=== PATIENT | male | born 1955 | race Caucasian/White ===

== ENCOUNTER → 2019-10-24 11:39 | Outpatient (ROUT) | payer MEDICARE, MEDICAID, SELFPAY ==
[2019-10-25 02:18] LABS: COVID19 Sendout Not Detected (Not Detect)
== END ==
PROVIDERS: Visit Provider Internal Medicine
DX: Z11.59 Encounter for screening for other viral diseases (principal)
CPT/HCPCS: 87635

== ENCOUNTER → 2019-11-26 08:10 | Outpatient (ROUT) | payer MEDICARE, MEDICAID, SELFPAY ==
[2019-11-26 09:33] LABS: Add Manual Diff / Slide Review NO; Basophils Absolute Auto 0 /uL (0-100); Basophils Percent Auto 0.6 % (0-2); Eosinophils Absolute Auto 200 /uL (0-450); Hematocrit 43.3 % (41-53); Lymphocytes Absolute Auto 1900 /uL (1100-4500); Lymphocytes Percent Auto 27.4 % (25-40); Mean Corpuscular HGB Conc 34.7 % (30-36); Mean Corpuscular Hemoglobin 33.3 PG (26-34); Monocytes Absolute Auto 500 /uL (0-900); Monocytes Percent Auto 7.6 % (3-14); Neutrophils Absolute Auto 4300 /uL (1500-7000); Neutrophils Percent Auto 61.4 % (50-75); Platelet Count 272 X10^3/uL (150-400); Red Blood Cell Count 4.52 X10^6/uL (4.5-5.9); Red Cell Distribution Width 12.6 % (11.6-14.8)
[2019-11-26 09:47] LABS: Alanine Aminotransferase 20 IU/L (<50); Albumin 3.7 g/dL (3.5-5.0); Albumin Globulin Ratio 1.2 (1.0-2.8); Alkaline Phosphatase 73 U/L (38-126); Aspartate Aminotransferase 21 IU/L (17-59); BUN Creatinine Ratio 25.3 (6-22); Bilirubin Total 0.8 mg/dL (0.2-1.3); Blood Urea Nitrogen 25 mg/dL (9-20); Calcium 9.1 mg/dL (8.4-10.2); Carbon Dioxide 31 mmol/L (22-32); Chloride 105 mmol/L (98-107); Estimated Glomerular Filt Rate > 60.0 mL/min (>60); Globulin 3.2 g/dL (1.7-4.1); Glucose 83 mg/dL (80-110); HEMOLYSIS < 15 (0-50); Potassium 3.9 mmol/L (3.4-5.1); Sodium 140 mmol/L (137-145); Total Protein 6.9 g/dL (6.3-8.2)
[2019-11-26 10:17] LABS: Prostate Specific Antigen 1.21 ng/mL (0.10-4.00)
[2019-11-26 10:47] LABS: Thyroid Stimulating Hormone 2.39 uIU/mL (0.47-4.68)
== END ==
PROVIDERS: Visit Provider Nurse Practitioner Family
DX: R35.0 Frequency of micturition (principal); R53.83 Other fatigue
CPT/HCPCS: 36415; 80053; 84153; 84443; 85025

== ENCOUNTER → 2019-12-16 19:59 | Outpatient (ROUT) | payer MEDICARE, MEDICAID, SELFPAY ==
[2019-12-16 20:31] LABS: Appearance Urine UA CLEAR; Bilirubin Urine UA NEGATIVE (NEGATIVE); Color Urine UA YELLOW; Glucose Urine UA NEGATIVE (Negative); Ketones Urine UA TRACE (NEGATIVE); Leukocyte Esterase Urine UA NEGATIVE (NEGATIVE); Nitrite Urine UA NEGATIVE (Negative); Occult Blood Urine UA NEGATIVE (Negative); Protein Urine UA NEGATIVE (Negative); Specific Gravity Urine UA 1.025 (1.000-1.035); Urobilinogen Urine UA 0.2 E.U./dL (0.2); pH Urine UA 5.5 (4.5-8.0)
[2019-12-16 20:40] LABS: Amorphous Sediment Urine 1+; RBC Urine 1-5/HPF (0-5/HPF); Squamous Epithelial Cell Urine 0-1 /HPF (0-5/HPF); WBC Urine 1-5/HPF (0-5/HPF)
[2019-12-16 20:41] LABS: Bacteria Urine Occasional (0-1); Culture Indicated Urine Cult Not Indicated; Mucus Urine 2+ (Negative)
== END ==
PROVIDERS: Visit Provider Nurse Practitioner Gerontology
DX: N39.0 Urinary tract infection, site not specified (principal)
CPT/HCPCS: 81001

== ENCOUNTER → 2019-12-19 07:24 | Outpatient (ROUT) | payer MEDICARE, MEDICAID, SELFPAY ==
[2019-12-19 16:11] LABS: Prostate Specific Antigen 0.831 ng/mL (0.10-4.00)
== END ==
PROVIDERS: Visit Provider Nurse Practitioner Gerontology
DX: N40.0 Benign prostatic hyperplasia without lower urinary tract symptoms (principal)
CPT/HCPCS: 36415; 84153

== ENCOUNTER → 2020-01-10 22:44 | Outpatient (ROUT) | payer MEDICARE, MEDICAID, SELFPAY ==
[2020-01-10 22:56] LABS: Appearance Urine UA CLEAR; Bilirubin Urine UA NEGATIVE (NEGATIVE); Color Urine UA YELLOW; Glucose Urine UA NEGATIVE (Negative); Ketones Urine UA NEGATIVE (NEGATIVE); Leukocyte Esterase Urine UA NEGATIVE (NEGATIVE); Nitrite Urine UA NEGATIVE (Negative); Occult Blood Urine UA TRACE-INTACT (Negative); Protein Urine UA NEGATIVE (Negative); Specific Gravity Urine UA 1.025 (1.000-1.035); Urobilinogen Urine UA 0.2 E.U./dL (0.2)
[2020-01-10 23:49] LABS: Bacteria Urine Many (>30); RBC Urine 0-1/HPF (0-5/HPF); WBC Urine 1-5/HPF (0-5/HPF)
[2020-01-10 23:50] LABS: Culture Indicated Urine Specimen Cultured
== END ==
PROVIDERS: Visit Provider Internal Medicine
DX: R35.0 Frequency of micturition (principal); R39.15 Urgency of urination
CPT/HCPCS: 81001; 87077; 87086

== ENCOUNTER → 2020-08-13 07:58 | Outpatient (ROUT) | payer MEDICARE, MEDICAID, SELFPAY ==
[2020-08-13 08:39] LABS: Add Manual Diff / Slide Review NO; Basophils Absolute Auto 0 /uL (0-100); Basophils Percent Auto 0.6 % (0-2); Eosinophils Absolute Auto 200 /uL (0-450); Eosinophils Percent Auto 2.2 % (2-4); Hematocrit 45.5 % (41-53); Hemoglobin 15.5 g/dL (13.5-17.5); Lymphocytes Absolute Auto 2200 /uL (1100-4500); Lymphocytes Percent Auto 26.8 % (25-40); Monocytes Absolute Auto 500 /uL (0-900); Monocytes Percent Auto 6.7 % (3-14); Neutrophils Absolute Auto 5100 /uL (1500-7000); Neutrophils Percent Auto 63.7 % (50-75); Platelet Count 295 X10^3/uL (150-400); Red Blood Cell Count 4.69 X10^6/uL (4.5-5.9); Red Cell Distribution Width 13.3 % (11.6-14.8); White Blood Cell Count 8.1 X10^3/uL (4.5-11.0)
[2020-08-13 08:49] LABS: Alanine Aminotransferase 23 IU/L (<50); Albumin 4.1 g/dL (3.5-5.0); Albumin Globulin Ratio 1.2 (1.0-2.8); Alkaline Phosphatase 79 U/L (38-126); Aspartate Aminotransferase 25 IU/L (17-59); BUN Creatinine Ratio 21.1 (6-22); Bilirubin Total 0.5 mg/dL (0.2-1.3); Blood Urea Nitrogen 23 mg/dL (9-20); Calcium 9.7 mg/dL (8.4-10.2); Carbon Dioxide 32 mmol/L (22-32); Chloride 102 mmol/L (98-107); Estimated Glomerular Filt Rate > 60.0 mL/min (>60); Globulin 3.3 g/dL (1.7-4.1); Glucose 91 mg/dL (80-110); HEMOLYSIS < 15 (0-50); Potassium 4.1 mmol/L (3.4-5.1); Sodium 138 mmol/L (137-145); Total Protein 7.4 g/dL (6.3-8.2)
== END ==
PROVIDERS: Visit Provider Internal Medicine
DX: I10 Essential (primary) hypertension (principal); Z79.899 Other long term (current) drug therapy
CPT/HCPCS: 36415; 80053; 85025

== ENCOUNTER → 2021-07-05 18:53 | Outpatient (ROUT) | payer MEDICARE, MEDICAID, SELFPAY ==
[2021-07-05 19:02] LABS: Appearance Urine UA CLOUDY; Bilirubin Urine UA NEGATIVE (NEGATIVE); Color Urine UA YELLOW; Glucose Urine UA NEGATIVE (Negative); Ketones Urine UA NEGATIVE (NEGATIVE); Leukocyte Esterase Urine UA 3+ (NEGATIVE); Nitrite Urine UA POSITIVE (Negative); Occult Blood Urine UA 1+ (Negative); Protein Urine UA 1+ (Negative); Specific Gravity Urine UA 1.015 (1.000-1.035); Urobilinogen Urine UA 0.2 E.U./dL (0.2)
[2021-07-05 19:21] LABS: Bacteria Urine Many (>30); Culture Indicated Urine Specimen Cultured; RBC Urine 0-1/HPF (0-5/HPF); WBC Urine >100/HPF (0-5/HPF)
== END ==
PROVIDERS: Visit Provider Nurse Practitioner Gerontology
DX: N39.0 Urinary tract infection, site not specified (principal)
CPT/HCPCS: 81001; 87077; 87086; 87186

== ENCOUNTER → 2021-09-03 10:19 | Outpatient (CLI) | payer MEDICARE, MEDICAID, SELFPAY ==
--- NOTE | 2021-09-03 | DI.RAD.S_ITS ---
PROCEDURE: FL BARIUM SWALLOW W SPEECH INDICATIONS: dysphagia COMPARISON: None. TECHNIQUE: Examination was conducted in conjunction with speech pathology per standard protocol. In the lateral projection, filming was performed of the patient swallowing. AP projection filming may also be performed with patient swallowing. COMPARISON: FINDINGS: Function: The oral preparatory phase appears normal, with proper containment. No laryngotracheal penetration or aspiration. No pathologic vallecular pooling. Morphology: No cricopharyngeal bar is identified. No cervical esophageal webs. No Zenker's diverticulum. No strictures. IMPRESSION: No laryngeal penetration or aspiration. Please see speech pathologist's report. Dictated by: Harika Camargo M.D. on 09/03/2021 at 16:56 Approved by: Harika Camargo M.D. on 09/03/2021 at 16:57
--- NOTE | 2021-09-03 14:50 | ST.SWALLOW ---
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 His sister was his procurement accountant for several years following his fall, but has not been his procurement accountant for the past 1-2 years and is not aware of his current difficulty with swallowing. He is currently living at [facility]. Micah was unable to provide a detailed history as speaking was difficult for him . Limited case history was obtained. Micah reported he primarily drinks liquid through an open cup. Subjective Observations Micah arrived in a wheelchair, heavily leaning on his left side. His left eye had a mild droop and his mouth was open and drooping on the left side at rest. Micah required a nelia lift to transition from his wheelchair to procedure chair and required straps to maintain an upright position for assessment. He was able to reduce the severity of the left side lean when asked, but could not maintain this position for more than 1-2 minutes. Patient Positioning Position View Lateral Imaging Lateral View Textures Administered Trials Presented Thin Liquid via Cup,[place] Liquid via Cup,Pudding Thick Liquid via Cup,Regular Textures Oral Phase Source: MBSIMP (TM) (C) Bolus Specific Scoring Grid Lip Closure WFL Tongue Control During Bolus Hold Mild Impairment Bolus Prep/Mastication Mild Impairment Bolus Transport/Lingual Motion Moderate Impairment A/P Lingual Propulsion Delay Yes Oral Residue Minimal Impairment Residue Clearing No Impairment (WNL) Nasal Regurgitation No Additional Oral Phase Observations Micah presented with no anterior loss of bolus. His chewing was prolonged, despite small bolus size, and a repetitive and disorganized tongue motion was observed during a/p propulsion of bolus . Mild loss of bolus to base of tongue during tongue hold. Minimal oral residue observed following all trials. Pharyngeal Phase Source: MBSIMP (TM) (C) Bolus Specific Scoring Grid Delayed Initiation of Pharyngeal Swallow Yes: head of bolus in pyriforms Soft Palate Elevation No Impairment (WNL) Tongue Base Strength/Range of Motion Mild Impairment Laryngeal Elevation No Impairment (WNL) Anterior Hyoid Movement Mild Impairment Epiglottic Range of Motion No Impairment (WNL) Vallecular Residue Yes Clearance of Vallecular Residue WFL Laryngeal Vestibular Closure Minimal Impairment Pharyngeal Stripping Wave Minimal Impairment Posterior Pharyngeal Wall Residue No Upper Esophageal Sphincter Opening No Impairment (WNL) Residue in the Pyriform Sinuses No Pharyngoesophageal Backflow Observed No Additional Pharyngeal Phase Observations Pt presented with delayed initiation of pharyngeal swallow, with the head of the bolus in the pyriforms prior to anterior hyoid movement. Once swallow was initiated, minimal impairment was noted in laryngeal vestibular closure, anterior hyoid movement, and pharyngeal stripping wave, but overall swallow was WNL. Residue observed in valleculae following swallow, which pt cleared with a second swallow when prompted. No penetration or aspiration observed across all trials. A/P View Esophageal Observations Esophageal Function Did not observe esophageal phase as pt was unable to stand for A/P view. Clinical Impressions Dysphagia Type Oral dysphagia Findings The pt presents with mild- moderate oral phase dysphagia, characterized by reduced tongue strength and coordination. Micah exhibited mildly impaired tongue control during bolus hold, with a mild posterior loss of bolus to his base of tongue and valleculae in addition to repetitive and disorganized tongue movements during a/p propulsion of bolus. Delayed initiation of pharyngeal swallow, however, once swallow was initiated, it was WFL. Recommend speech therapy to increase tongue strength and coordination for increased swallow safety and efficiency of swallow. Rehabilitation Potential Good Patient Appropriate for Therapy Yes Recommendations Diet Liquids Order Thin Diet Order Regular Medication Recommendation As Tolerated Additional Dietary Needs 1:1 Assistance Aspiration Precautions Recommended Precautions Upright at 90 Degrees,Small Bites/Sips Treatment Plan Therapy Recommendations Outpatient Speech Therapy, Lingual Exercises Compensatory Strategies Recommendations Sitting Upright (90 deg),Small Bites and Sips
== END ==
PROVIDERS: PCP Internal Medicine; Referring Provider Internal Medicine; Visit Provider Internal Medicine
DX: R13.10 Dysphagia, unspecified (principal)
CPT/HCPCS: 74230; 92611

== ENCOUNTER → 2021-10-19 08:01 | Outpatient (ROUT) | payer MEDICARE, MEDICAID, SELFPAY ==
[2021-10-19 09:32] LABS: Add Manual Diff / Slide Review NO; Basophils Absolute Auto 0 /uL (0-100); Basophils Percent Auto 0.4 % (0-2); Eosinophils Absolute Auto 300 /uL (0-450); Hematocrit 44.3 % (41-53); Hemoglobin 14.7 g/dL (13.5-17.5); Lymphocytes Absolute Auto 2100 /uL (1100-4500); Lymphocytes Percent Auto 24.2 % (25-40); Mean Corpuscular HGB Conc 33.2 % (30-36); Mean Corpuscular Hemoglobin 30.9 PG (26-34); Mean Corpuscular Volume 92.9 fL (80-100); Monocytes Absolute Auto 700 /uL (0-900); Monocytes Percent Auto 8.2 % (3-14); Neutrophils Absolute Auto 5500 /uL (1500-7000); Neutrophils Percent Auto 64.2 % (50-75); Platelet Count 282 X10^3/uL (150-400); Red Blood Cell Count 4.77 X10^6/uL (4.5-5.9); Red Cell Distribution Width 13.6 % (11.6-14.8); White Blood Cell Count 8.5 X10^3/uL (4.5-11.0)
[2021-10-19 09:44] LABS: Alanine Aminotransferase 27 IU/L (<50); Albumin 3.6 g/dL (3.5-5.0); Albumin Globulin Ratio 1.1 (1.0-2.8); Alkaline Phosphatase 92 U/L (38-126); Aspartate Aminotransferase 27 IU/L (17-59); BUN Creatinine Ratio 28.6 (6-22); Bilirubin Total 0.5 mg/dL (0.2-1.3); Blood Urea Nitrogen 28 mg/dL (9-20); Calcium 8.7 mg/dL (8.4-10.2); Carbon Dioxide 28 mmol/L (22-32); Chloride 109 mmol/L (98-107); Cholesterol 185 mg/dL (140-199); Estimated Glomerular Filt Rate > 60 mL/min (>60); Globulin 3.3 g/dL (1.7-4.1); Glucose 80 mg/dL (80-110); HDL Cholesterol 20 mg/dL (40-60); HEMOLYSIS < 15 (0-50); LDL Cholesterol Calculated 149 mg/dL (<100); Sodium 141 mmol/L (137-145); Total Protein 6.9 g/dL (6.3-8.2); Triglycerides 82 mg/dL (35-150)
== END ==
PROVIDERS: PCP Internal Medicine; Visit Provider Nurse Practitioner Gerontology
DX: Z79.899 Other long term (current) drug therapy (principal); Z87.820 Personal history of traumatic brain injury; Z01.89 Encounter for other specified special examinations
CPT/HCPCS: 36415; 80053; 80061; 85025

== ENCOUNTER → 2021-12-07 07:40 | Outpatient (ROUT) | payer MEDICARE, MEDICAID, SELFPAY ==
[2021-12-07 09:16] LABS: Alanine Aminotransferase 17 IU/L (<50); Albumin 3.6 g/dL (3.5-5.0); Albumin Globulin Ratio 1.1 (1.0-2.8); Alkaline Phosphatase 100 U/L (38-126); Aspartate Aminotransferase 19 IU/L (17-59); BUN Creatinine Ratio 21.9 (6-22); Bilirubin Total 0.6 mg/dL (0.2-1.3); Blood Urea Nitrogen 21 mg/dL (9-20); Calcium 8.8 mg/dL (8.4-10.2); Carbon Dioxide 29 mmol/L (22-32); Chloride 103 mmol/L (98-107); Cholesterol 142 mg/dL (140-199); Estimated Glomerular Filt Rate > 60 mL/min (>60); Globulin 3.4 g/dL (1.7-4.1); Glucose 82 mg/dL (80-110); HDL Cholesterol 19 mg/dL (40-60); HEMOLYSIS < 15 (0-50); LDL Cholesterol Calculated 105 mg/dL (<100); Potassium 3.9 mmol/L (3.4-5.1); Sodium 137 mmol/L (137-145); Triglycerides 92 mg/dL (35-150)
== END ==
PROVIDERS: PCP Internal Medicine; Visit Provider Nurse Practitioner Gerontology
DX: E78.5 Hyperlipidemia, unspecified (principal)
CPT/HCPCS: 36415; 80053; 80061

== ENCOUNTER → 2023-01-25 10:45 | Outpatient (CLI) | payer MEDICARE, MEDICAID, SELFPAY ==
--- NOTE | 2023-01-25 | DI.RAD.S_ITS ---
PROCEDURE: Modified BARIUM SWALLOW INDICATIONS: Dysphagia, oropharyngeal phase COMPARISON: None. FINDINGS: Modified barium swallow was performed in the direction of speech pathology. Patient was given thin liquids, thick liquids, pudding consistency, and barium covered cookie. Noted was some difficulty in initiating the swallowing swallowing mechanism. There is no evidence for aspiration during the examination. IMPRESSION: 1. Moderate difficulty initiating the swallowing mechanism. 2. No evidence for aspiration. Dictated by: Brendan Tracy M.D. on 01/25/2023 at 15:26 Approved by: Brendan Tracy M.D. on 01/25/2023 at 15:29
--- NOTE | 2023-01-25 13:10 | ST.SWALLOW ---
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 Rodriguez. Micah is currently at [facility]. Pt is a poor historian and he was not able to provide a detailed history due to severely dysarthric speech. He was not accompanied by family or staff to the appointment. Pt did have an MBSS on 09/03/21 that indicated mild-moderate oral phase dysphagia, characterized by reduced tongue strength and coordination,mildly impaired tongue control during bolus hold, mild posterior loss of bolus to his base of tongue and valleculae in addition to repetitive and disorganized tongue movements during AP propulsion of bolus. Delayed initiation of pharyngeal swallow, however, once swallow was initiated, it was WFL. According to the current order received, the MBSS was requested for evaluation of pharyngeal function. Subjective Observations Pt presented to the fluoroscopy room in a wheelchair. He was lifted into the fluoroscopy chair via nelia lift. Pt was able to sit in an upright position adequate for the MBSS. Patient Positioning Position View Lateral Imaging Lateral View Textures Administered Trials Presented Thin Liquid via Spoon (IDDSI 0 ),Thin Liquid via Cup (IDDSI 0 ),Thin Liquid via Straw (IDDSI 0),Extremely Thick Liquid via Spoon (IDDSI 4),Regular ( IDDSI 7) Barium Tablet Yes The IDDSI Framework Protocol: IDDSI.1 Oral Impairment Source: The Modified Barium Swallow Impairment Profile (MBSImP??) Lip Closure Escape from interlab.space/lat .junct.;no ext. beyond [place]mil[place] border Tongue Control During Bolus Hold Escape to lateral buccal cavity/floor of mouth (FOM) Bolus Preparation/Mastication Disorganized chewing/mashing with solid pieces of bolus unchewed Bolus Transport/Lingual Motion Repetitive/disorganized tongue motion Oral Residue Residue collection on oral structures Location Tongue Initiation of Pharyngeal Swallow Bolus head at pyriforms Additional Oral Impairment Observations OME indicated natural dentition in poor oral hygiene . Lingual and labial structures were observed to have reduced ROM, strength and coordination. Pt's speech was hypernasal indicating poor velopharyngeal closure. Repetitive, slowed and disorganized mastication was noted. Bolus control, formation and AP transition were slow. Swallow initiation was delayed due to pt's poor lingual control. Pharyngeal Impairment Source: The Modified Barium Swallow Impairment Profile (MBSImP??) Soft Palate Elevation No bolus between soft palate & pharyngeal wall Laryngeal Elevation Part.sup.move.thyroid cart/ part.approx.arytenoids to epiglot.petiole Anterior Hyoid Excursion Partial anterior movement Epiglottic Movement Complete inversion Laryngeal Vestibular Closure Complete; no air/contrast in laryngeal vestibule Pharyngeal Stripping Wave Present - diminished Pharyngoesophageal Segment Opening Complete distention & complete duration; no obstruction of flow Tongue Base Retraction Narrow column of contrast/air betwn tongue base & post. pharyngeal wall Pharyngeal Residue Collection of residue within/ on pharyngeal structures Location Diffuse (>3 areas) Additional Pharyngeal Impairment Tongue base weakness Observations negatively impacted hyolaryngeal elevation. Epiglottic inversion was adequate with a good laryngeal seal. No laryngeal penetration or aspiration was observed. Delayed swallow initiation observed. Once swallow was initiated, minimal impairment of the pharyngeal phase was noted. Contrast residual was observed in the valeculla but was cleared with subsequent swallows. A/P View The IDDSI Framework Protocol: IDDSI.1 A/P View Observations Additional A-P Observations AP position and observation of the esophageal phase of pt's swallow was not done as pt was unable to stand. Clinical Impressions Dysphagia Type Oral,Pharyngeal Findings Overall the pt presented with mild-moderate oral phase dysphagia. Mastication and swallow initiation are slow and disorganized requiring more time. Once the bolus is swallowed, there appeared to be minimal dysfunction. The results obtained in this MBSS are similar to the results obtained in August 2021. If pt eats slowly and chews foods well, he presents at a mild risk for aspiration. Pt may benefits from swallow therapy targeting safe swallow strategies to reduce his aspiration risk. Rehabilitation Potential Fair Patient Appropriate for Therapy Yes: Education of safe swallow strategies Recommendations Diet Comments No changes in diet are recommended Additional Dietary Needs Reminders to Use Strategies Aspiration Precautions Recommended Precautions Upright at 90 Degrees,Small Bites/Sips Additional Precautions Slow rate of intake, chew foods well, frequent rests between bites/sips Treatment Plan Therapy Recommendations Outpatient Speech Therapy Therapy Strategy Recommendations Sitting Upright (90 deg), Liquids from Cup,Liquids from Straw,Small Bites and Sips Additional Strategies Recommended small bites, chew slowly, frequent rests and slowed rate of intake Placement Recommendation After Discharge Custodial Care Facility
== END ==
PROVIDERS: PCP Internal Medicine; Referring Provider Internal Medicine; Visit Provider Internal Medicine
DX: R13.12 Dysphagia, oropharyngeal phase (principal)
CPT/HCPCS: 74220; 92611

== ENCOUNTER → 2023-10-10 11:06 | Outpatient (CLI) | payer MEDICARE, MEDICAID, SELFPAY ==
[2023-10-10 12:36] LABS: Add Manual Diff / Slide Review NO; Basophils Absolute Auto 0 /uL (0-100); Basophils Percent Auto 0.6 % (0-2); Eosinophils Absolute Auto 200 /uL (0-450); Eosinophils Percent Auto 3.2 % (2-4); Hematocrit 41.6 % (41-53); Hemoglobin 14.3 g/dL (13.5-17.5); Lymphocytes Absolute Auto 1700 /uL (1100-4500); Lymphocytes Percent Auto 23.7 % (25-40); Mean Corpuscular HGB Conc 34.3 % (30-36); Mean Corpuscular Hemoglobin 32.7 PG (26-34); Mean Corpuscular Volume 95.4 fL (80-100); Monocytes Absolute Auto 600 /uL (0-900); Monocytes Percent Auto 8.7 % (3-14); Neutrophils Absolute Auto 4700 /uL (1500-7000); Neutrophils Percent Auto 63.8 % (50-75); Platelet Count 359 X10^3/uL (150-400); Red Blood Cell Count 4.36 X10^6/uL (4.5-5.9); Red Cell Distribution Width 13.5 % (11.6-14.8); White Blood Cell Count 7.4 X10^3/uL (4.5-11.0)
[2023-10-10 13:19] LABS: BUN Creatinine Ratio 9.8 (6-22); Blood Urea Nitrogen 9 mg/dL (9-20); Calcium 8.7 mg/dL (8.4-10.2); Carbon Dioxide 29 mmol/L (22-32); Chloride 100 mmol/L (98-107); Estimated Glomerular Filt Rate > 60 mL/min (>60); Glucose 70 mg/dL (80-110); HEMOLYSIS 23 (0-50); Potassium 4.6 mmol/L (3.4-5.1); Sodium 135 mmol/L (137-145)
== END ==
PROVIDERS: PCP Internal Medicine; Referring Provider Nurse Practitioner Family; Visit Provider Nurse Practitioner Family
DX: I10 Essential (primary) hypertension (principal)
CPT/HCPCS: 36415; 80048; 85025

== ENCOUNTER → 2024-04-03 08:13 | Outpatient (ROUT) | payer MEDICARE, MEDICAID, SELFPAY ==
[2024-04-03 08:22] LABS: Hematocrit 40.9 % (41-53); Hemoglobin 13.7 g/dL (13.5-17.5); Mean Corpuscular HGB Conc 33.5 % (30-36); Mean Corpuscular Hemoglobin 31.4 PG (26-34); Mean Corpuscular Volume 93.6 fL (80-100); Platelet Count 332 X10^3/uL (150-400); Red Blood Cell Count 4.37 X10^6/uL (4.5-5.9); Red Cell Distribution Width 13.7 % (11.6-14.8); White Blood Cell Count 9.4 X10^3/uL (4.5-11.0)
[2024-04-03 08:38] LABS: Alanine Aminotransferase 17 IU/L (<50); Albumin 3.4 g/dL (3.5-5.0); Albumin Globulin Ratio 1.3 (1.0-2.8); Alkaline Phosphatase 87 U/L (38-126); Aspartate Aminotransferase 22 IU/L (17-59); BUN Creatinine Ratio 10.2 (6-22); Bilirubin Total 0.7 mg/dL (0.2-1.3); Blood Urea Nitrogen 10 mg/dL (9-20); Calcium 8.9 mg/dL (8.4-10.2); Carbon Dioxide 32 mmol/L (22-32); Chloride 98 mmol/L (98-107); Estimated Glomerular Filt Rate > 60 mL/min (>60); Globulin 2.7 g/dL (1.7-4.1); Glucose 79 mg/dL (80-110); HEMOLYSIS < 15 (0-50); Potassium 4.4 mmol/L (3.4-5.1); Sodium 132 mmol/L (137-145); Total Protein 6.1 g/dL (6.3-8.2)
== END ==
PROVIDERS: Family Provider Internal Medicine; PCP Internal Medicine; Visit Provider Registered Nurse
DX: B37.9 Candidiasis, unspecified (principal)
CPT/HCPCS: 36415; 80053; 85027

== ENCOUNTER → 2024-04-04 18:46 | Outpatient (ROUT) | payer MEDICARE, MEDICAID, SELFPAY ==
[2024-04-04 19:29] LABS: Influenza A - CEPHEID Flu A POSITIVE (NEGATIVE); Influenza B - CEPHEID Flu B NEGATIVE (NEGATIVE); Respiratory Syncytial Virus Negative (Negative)
[2024-04-04 19:51] LABS: COVID-19 CEPHEID 4-PLEX PCR Negative (Negative)
== END ==
PROVIDERS: Family Provider Internal Medicine; PCP Internal Medicine; Visit Provider Internal Medicine
DX: R05.9 Cough, unspecified (principal)
CPT/HCPCS: 0241U

== ENCOUNTER 2024-10-11 18:56 | Inpatient (IN) | payer MEDICARE, MEDICAID, SELFPAY ==
[2024-10-11] VITALS (11 sets, daily range): BP systolic 118–127; BP diastolic 76–84; PULSE 48–102; RESP 18–19; TEMP 36.4–37.9; O2SAT 88–98; BMI 28.5
--- NOTE | 2024-10-11 19:19 | DI.RAD.S_ITS ---
PROCEDURE: XR CHEST 1V INDICATIONS: Chest Pain TECHNIQUE: One view of the chest was acquired. COMPARISON: None. FINDINGS: Surgical changes and devices: None. Lungs and pleura: Lungs are clear. No pleural effusions or pneumothorax. Mediastinum: Mediastinal contours appear normal. Heart size is normal. Bones and chest wall: No suspicious bony lesions. Overlying soft tissues appear unremarkable. IMPRESSION: No acute pulmonary process. Dictated by: Lakeisha Sibley M.D. on 10/11/2024 at 19:40 Approved by: Lakeisha Sibley M.D. on 10/11/2024 at 19:40
--- NOTE | 2024-10-11 19:21 | PC.NURSE ---
Discussed w/ MD Zambrano about pt presentation.
--- NOTE | 2024-10-11 19:33 | EKG_ITS ---
[id number] [place] [id number] Test Date: 2024-10-11 Pat Name: Micah Mooney Department: [facility] Room: Gender: Male Supervisor Curing Room: : 1955 Requested By: Order Number: [id number] Reading MD: Agus Mccabe Measurements Intervals [place] Rate: 94 P: 26 ME: 164 QRS: -19 QRSD: 76 T: 34 QT: 342 QTc: 427 Interpretive Statements Normal sinus rhythm Electronically Signed On 10-25-2024 8:12:19 PDT by Agus Mccabe
[2024-10-11 20:00] LABS: Add Manual Diff / Slide Review NO; Hematocrit 38.9 % (41-53); Hemoglobin 13.5 g/dL (13.5-17.5); Lymphocytes Absolute Auto 1200 /uL (1100-4500); Mean Corpuscular HGB Conc 34.7 % (30-36); Mean Corpuscular Hemoglobin 31.9 PG (26-34); Mean Corpuscular Volume 91.9 fL (80-100); Platelet Count 256 X10^3/uL (150-400)
--- NOTE | 2024-10-11 20:01 | DI.CT.S_ITS ---
PROCEDURE: CT ANGIO CHEST PE PROTOCOL INDICATIONS: coughing up blood, CXR neg TECHNIQUE: After the administration of intravenous contrast, 2 mm thick sections acquired from the pulmonary apices to the posterior costophrenic angles. 3-dimensional maximum intensity projection (MIP) coronal and sagittal reformats were then acquired through the thorax. For radiation dose reduction, the following was used: automated exposure control, adjustment of mA and/or kV according to patient size. COMPARISON: None. FINDINGS: Image quality: Suboptimal due to motion artifact and poor inspiratory effort. Pulmonary arteries: Pulmonary arteries are normal in size, and demonstrate no intraluminal filling defects to suggest central pulmonary embolism. Lower Neck: No enlarged lymph nodes. Thyroid: No thyroid nodules which require sonographic follow up, per consensus guidelines. Axillae: No enlarged lymph nodes. Chest Wall: Unremarkable. Bones: Unremarkable. Lungs and Pleura: No pneumothorax or pleural effusions. Atelectasis. Bronchial thickening. Heart: Heart size is normal. No pericardial effusion. Thoracic Vessels: No aortic aneurysm. Mediastinum and [place]: No enlarged lymph nodes. Esophagus: No wall thickening. Small hiatal hernia. Upper Abdomen: Caudate lobe hepatic cyst, benign. IMPRESSION: No pulmonary embolus, accounting for motion artifact and poor inspiratory effort. Bronchial thickening, likely indicating infectious or inflammatory bronchitis. Dictated by: Jaskaran Mcfadden M.D. on 10/11/2024 at 21:38 Approved by: Jaskaran Mcfadden M.D. on 10/11/2024 at 21:40
[2024-10-11 20:06] LABS: INR 1.2 (0.9-1.3); Prothrombin Time 13.9 SECONDS (9.4-12.5)
[2024-10-11 20:09] LABS: PTT Partial Thromboplastin Tim 31 SECONDS (25.1-36.5)
[2024-10-11] MEDS: ALBUTEROL/IPRATROPIUM 3 ML AMPUL INH (20:09)
[2024-10-11 20:10] LABS: Alanine Aminotransferase 17 IU/L (<50); Albumin 3.8 g/dL (3.5-5.0); Albumin Globulin Ratio 1.2 (1.0-2.8); Alkaline Phosphatase 77 U/L (38-126); Blood Urea Nitrogen 15 mg/dL (9-20); Calcium 8.6 mg/dL (8.4-10.2); Carbon Dioxide 26 mmol/L (22-32); Chloride 98 mmol/L (98-107); Creatine Kinase 50 U/L (55-170); Estimated Glomerular Filt Rate > 60 mL/min (>60); Globulin 3.2 g/dL (1.7-4.1); Glucose 129 mg/dL (70-99); Lipase 146 U/L (23-300); Magnesium 1.8 mg/dL (1.6-2.3); Sodium 131 mmol/L (137-145); Total Protein 7.0 g/dL (6.3-8.2)
[2024-10-11 20:15] LABS: HEMOLYSIS 70 (0-50)
[2024-10-11 20:16] LABS: Potassium 4.3 mmol/L (3.4-5.1)
[2024-10-11 20:22] LABS: NT-proBNP (BNP-Adult 18+) 545 pg/mL (<125); Troponin I < 0.012 ng/mL (0.01-0.034)
--- NOTE | 2024-10-11 20:37 | PC.NURSE ---
Pt to imaging via ED stretcher with information technology program manager
[2024-10-11 20:53] LABS: Coronavirus NL 63 Not Detected (Not Detect); SARS- CoV-2 Detected (Not Detecte)
[2024-10-11] MEDS: DOXYCYCLINE HYCLATE 100 MG TABLET PO (21:06)
--- NOTE | 2024-10-11 21:41 | ED_ITS ---
HPI - General Adult General Chief complaint: Shortness of Breath/Dyspnea Stated complaint: Aspirated Last Night, Cough Time Seen by Provider: 10/11/24 20:01 Source: patient and EMS Mode of arrival: EMS History of Present Illness HPI narrative: 68-year-old male resident of [facility], with history of traumatic brain injury, right-sided hemiparesis, suspected aspiration pneumonia problems in the past, increased coughing noted at nursing facility. Noted to have coughing up of blood by nursing staff. No known tuberculosis or lung cancers. Onset (ago): minute(s) Related Data Home Medications ?Medication ?Instructions ?Recorded ?Confirmed acetaminophen 325 mg tablet 650 mg PO Q4H PRN pain or fever 10/11/24 10/11/24 acyclovir 400 mg tablet 800 mg PO Q8H herpes simplex 10/11/24 10/11/24 atorvastatin 10 mg tablet 10 mg PO DAILY 10/11/2409/18 benzonatate 100 mg capsule 100 mg PO 3XD 10/11/2409/18 camphor 4.7 %-eucalyptus oil 1.2 1 applic topical MARTI Y 10/11/24 10/11/24 %-menthol 2.6 % topical ointment ([employer] Vaporub) carboxymethylcellulose sodium 0.5 1 drp EYE-RIGHT Q6H 10/11/24 10/11/24 % eye drops in a dropperette (Refresh Plus) cholecalciferol (vitamin D3) 25 1,000 unit PO DAILY 10/11/24 mcg (1,000 unit) tablet (Vitamin D3) citalopram 10 mg tablet 10 mg PO DAILY 10/11/2409/18 dorzolamide 22.3 mg-timolol 6.8 2 drp EYE-RIGHT Q12H 0 10/11/24 10/11/24 mg/mL eye drops hydrocortisone 1 % topical cream 1 applic topical TID PRN rash on 10/11/24 10/11/24 face hydrocortisone 2.5 % topical cream 1 applic topical BI D PRN red 10/11/24 10/11/24 flakey patches latanoprost 0.005 % eye drops 1 drp EYE-RIGHT .qhs 10/11/24 lisinopril 5 mg tablet 5 mg PO DAILY 10/11/2410/11 loratadine 10 mg tablet 10 mg PO DAILY 10/11/24 07/2 08/11 meclizine 25 mg tablet 25 mg PO BID PRN dizziness 0 10/11/24 10/11/24 nystatin 100,000 unit/gram topical 1 applic topical BI D PRN rash 10/11/24 10/11/24 powder ondansetron 4 mg disintegrating 4 mg PO Q4H PRN nausea /vomiting 10/11/24 10/11/24 tablet prednisolone acetate 1 % eye 1 drp EYE-RIGHT QAM 10/1110/11/24 drops,suspension terbinafine HCl 1 % topical cream 1 applic topical BID 10/11/24 10/11/24 (Antifungal (terbinafine)) Allergies Allergy/AdvReac Type Severity Reaction Status Date / Time Latex, Natural Rubber Allergy Verified 10/11/24 19:16 Penicillins Allergy Verified 10/11/24 19:16 Patient History Medical History (Updated 10/12/24 @ 00:31 by Sudarshan Torres MD) Glaucoma Hypertension Depression HLD (hyperlipidemia) Left hemiparesis Cognitive deficits Social History Smoking Status: Unknown if ever smoked Smoking Status: Unknown if ever smoked Exam Narrative Exam Narrative: GENERAL: Well-developed patient, in mild distress. Frequent episodic coughing. HEAD: Atraumatic. Normocephalic. EYES: Pupils equal round and reactive. Extraocular motions intact. No scleral icterus. No injection or drainage. ENT: Nose without bleeding, purulent drainage. Throat without erythema, tonsillar hypertrophy or exudate. Airway patent. NECK: Well-healed midline horizontal scar consistent with previous well-healed removed tracheostomy. CARDIOVASCULAR: Regular rate and rhythm without murmurs, gallops, or rubs. RESPIRATORY: Clear to auscultation. Breath sounds equal bilaterally. No wheezes, rales, or rhonchi. GASTROINTESTINAL: Abdomen soft, non-tender, nondistended. EXTREMITIES: No edema or joint tenderness. BACK: Nontender without deformity or crepitance. No flank tenderness. NEURO: Can state his name, does not seem to know where he is. Right-sided hemiparesis. SKIN: No rash or erythema of visible areas Initial Vital Signs Initial Vital Signs: Vital Signs Temperature 100.2 F H 10/11/24 19:00 Pulse Rate 102 H 10/11/24 19:00 Respiratory Rate 19 10/11/24 19:00 Blood Pressure 123/79 10/11/24 19:00 Pulse Oximetry 88 L 10/11/24 19:00 Oxygen Delivery Method Room Air 10/11/24 19:00 Course Orders Ordered: ED Orders 10/11/24 19:19 XR chest 1V Stat EKG-12 Lead Stat 10/11/24 19:48 Blood Culture Stat Complete Blood Count AUTO DIFF Stat Comprehensive Metabolic Panel Stat Lipase Stat Magnesium Stat NT-proBNP (BNP-Adult 18+) Stat PTT Partial Thromboplastin Darren Stat Prothrombin Time INR Stat Troponin & CK Cardiac Panel Stat 10/11/24 20:01 CT angio chest PE protocol Stat Respiratory Panel (Film Array) Stat Acetaminophen (Acetaminophen 325 Mg Tablet) 1,000 mg PO Q6H PRN PRN Reason: fever, pain Albuterol (Albuterol 2.5 Mg/3 Ml Neb (Adult)) 2.5 mg INH [id number] PRN PRN Reason: Shortness Of Breath Artificial Tears (Carboxymethylcellulose Drops) 1 drops EYE-RIGHT Q6H [facility] Citalopram Hydrobromide (Citalopram 10 Mg Tablet) 10 mg PO DAILY [facility] Dorzolamide HCl (Dorzolamide 2% Ophth 10 Ml) 1 drops EYE-RIGHT Q12H [facility] Enoxaparin Sodium (Enoxaparin 40 Mg/0.4 Ml Syringe) 40 mg SUBCUT DAILY [facility] Remdesivir 100 mg/ Sodium (Chloride) 250 mls @ 250 mls/hr IV Q24H VIJAY Stop: 10/15/24 21:59 Latanoprost (Latanoprost 0.005% Ophth 2.5 Ml) 1 drops EYE-RIGHT BEDTIME [facility] Lisinopril (Lisinopril 5 Mg Tablet) 5 mg PO DAILY [facility] Loratadine (Loratadine 10 Mg Tablet) 10 mg PO DAILY [facility] Naloxone HCl (Naloxone 0.4 Mg/Ml Vial) 0.2 mg IV Q2MIN PRN PRN Reason: Opiate Reversal Nystatin (Nystatin Powder 15gm) 1 applic TOP BID PRN PRN Reason: Rash Ondansetron HCl (Ondansetron 4 Mg Odt) 4 mg PO Q4H PRN PRN Reason: nausea/vomiting Prednisolone Acetate (Prednisolone Ophth Susp) 1 drops EYE-RIGHT DAILY VIJAY Timolol Maleate (Timolol 0.5% Ophth) 1 drops EYE-RIGHT Q12H VIJAY Discontinued Medications Albuterol/Ipratropium (Albuterol/Ipratropium 3 Ml Ampul) 3 ml INH NOW ONE Stop: 10/11/24 20:02 Last Admin: 10/11/24 20:09 Dose: 3 ml Documented By: REMY Doxycycline Hyclate (Doxycycline Hyclate 100 Mg Tablet) 100 mg PO NOW ONE Stop: 10/11/24 20:03 Last Admin: 10/11/24 21:06 Dose: 100 mg Documented By: JUANA Ceftriaxone Sodium 1,000 mg/ (Sodium Chloride) 100 mls @ 200 mls/hr IV NOW ONE Stop: 10/11/24 20:03 Last Infusion: 10/11/24 21:32 Dose: Infused Documented By: Admin: 10/11/24 21:06 Dose: 200 mls/hr Documented By: JUANA Remdesivir 200 mg/ Sodium (Chloride) 250 mls @ 250 mls/hr IV NOW ONE Stop: 10/12/24 01:18 Oseltamivir Phosphate (Oseltamivir 75 Mg Capsule) 75 mg PO NOW ONE Stop: 10/11/24 20:23 Last Admin: 10/11/24 20:26 Dose: Not Given Documented By: Vital Signs Vital signs: Vital Signs - 8 hr 10/11/24 20:00 10/11/24 20:00 10/11/24 20:10 Pulse Rate 90 86 Respiratory Rate 18 18 Blood Pressure 124/80 Pulse Oximetry 95 93 Oxygen Delivery Method Nasal Cannula Nasal Cannula Oxygen Flow Rate 2 2 10/11/24 20:30 10/11/24 20:30 10/11/24 21:00 Pulse Rate 90 79 Respiratory Rate Blood Pressure 126/84 Pulse Oximetry 94 93 Oxygen Delivery Method Oximask Oximask Oxygen Flow Rate 4 4 10/11/24 21:30 10/11/24 22:00 10/11/24 22:30 Pulse Rate 48 L 82 79 Respiratory Rate Blood Pressure 126/83 Pulse Oximetry 92 94 95 Oxygen Delivery Method Oximask Oximask Oximask Oxygen Flow Rate 4 4 4 Medical Decision Making Lab Data 10/11/24 19:48 10/11/24 19:48 Labs: Lab Results 10/11/24 10/11/24 Range/Units 19:48 20:01 WBC 7.0 (4.5-11.0) X10^3/uL RBC 4.23 L (4.5-5.9) X10^6/uL Hgb 13.5 (13.5-17.5) g/dL Hct 38.9 L (41-53) % MCV 91.9 (80-100) fL MCH 31.9 (26-34) PG MCHC 34.7 (30-36) % RDW 13.6 (11.6-14.8) % Plt Count 256 (150-400) X10^3/uL Neut % (Auto) 64.6 (50-75) % Lymph % (Auto) 16.5 L (25-40) % Real % (Auto) 17.9 H (3-14) % Eos % (Auto) 0.4 L (2-4) % Baso % (Auto) 0.6 (0-2) % Neut # (Auto) 4500 (9938-6783) /uL Lymph # (Auto) 1200 (4413-6131) /uL Real # (Auto) 1300 H (0-900) /uL Eos # (Auto) 0 (0-450) /uL Baso # (Auto) 0 (0-100) /uL PT 13.9 H (9.4-12.5) SECONDS INR 1.2 (0.9-1.3) APTT 31 (25.1-36.5) SECONDS Sodium 131 L (137-145) mmol/L Potassium 4.3 (3.4-5.1) mmol/L Chloride 98 (98-107) mmol/L Carbon Dioxide 26 (22-32) mmol/L BUN 15 (9-20) mg/dL Creatinine 1.07 (0.66-1.25) mg/dL Estimated GFR > 60 (>60) mL/min BUN/Creatinine Ratio 14.0 (6-22) Glucose 129 H (70-99) mg/dL Calcium 8.6 (8.4-10.2) mg/dL Magnesium 1.8 (1.6-2.3) mg/dL Total Bilirubin 0.6 (0.2-1.3) mg/dL AST 27 (17-59) IU/L ALT 17 (<50) IU/L Alkaline Phosphatase 77 (38-126) U/L Total Creatine Kinase 50 L (55-170) U/L Troponin I < 0.012 (0.01-0.034) ng/mL NT-Pro-B Natriuret Pep 545 H (<125) pg/mL Total Protein 7.0 (6.3-8.2) g/dL Albumin 3.8 (3.5-5.0) g/dL Globulin 3.2 (1.7-4.1) g/dL Albumin/Globulin Ratio 1.2 (1.0-2.8) Lipase 146 (23-300) U/L Chlamy pneumoniae PCR Not detected (Not Detect) Adenovirus (PCR) Not detected (Not Detect) B. pertussis DNA (PCR) Not detected (Not Detect) B.parapertussis DNA PCR Not detected (Not Detecte) Coronavirus OC43 (PCR) Not detected (Not Detect) Coronavirus HKU1 (PCR) Not detected (Not Detect) Coronavirus 229E (PCR) Not detected (Not Detect) SARS-CoV-2 (PCR) Detected H (Not Detecte) Coronavirus NL63 (PCR) Not detected (Not Detect) Human Metapneumovir PCR Not detected (Not Detect) Influenza Type A (PCR) Not detected (Not Detect) Influenza Type B (PCR) Not detected (Not Detect) M. pneumoniae (PCR) Not detected (Not Detect) Parainfluenza 1 (PCR) Not detected (Not Detect) Parainfluenza 2 (PCR) Not detected (Not Detect) Parainfluenza 3 (PCR) Not detected (Not Detect) Parainfluenza 4 (PCR) Not detected (Not Detect) RSV (PCR) Not detected (Not Detect) Entero/Rhino (PCR) Not detected (Not Detect) Imaging Data CTA chest: Radiologist's Impression: [address] [address] [address] Scan Report Signed Patient: Micah Mooney MR#: [id number] : 1955 Acct:[id number] Age/Sex: 68 / M Date of Service: 10/11/24 Loc: ED Accession Number: [id number] Procedure: CT angio chest PE protocol Ordering Provider: Kar Zambrano MD PROCEDURE: CT ANGIO CHEST PE PROTOCOL INDICATIONS: coughing up blood, CXR neg TECHNIQUE: After the administration of intravenous contrast, 2 mm thick sections acquired from the pulmonary apices to the posterior costophrenic angles. 3-dimensional maximum intensity projection (MIP) coronal and sagittal reformats were then acquired through the thorax. For radiation dose reduction, the following was used: automated exposure control, adjustment of mA and/or kV according to patient size. COMPARISON: None. FINDINGS: Image quality: Suboptimal due to motion artifact and poor inspiratory effort. Pulmonary arteries: Pulmonary arteries are normal in size, and demonstrate no intraluminal filling defects to suggest central pulmonary embolism. Lower Neck: No enlarged lymph nodes. Thyroid: No thyroid nodules which require sonographic follow up, per consensus guidelines. Axillae: No enlarged lymph nodes. Chest Wall: Unremarkable. Bones: Unremarkable. Lungs and Pleura: No pneumothorax or pleural effusions. Atelectasis. Bronchial thickening. Heart: Heart size is normal. No pericardial effusion. Thoracic Vessels: No aortic aneurysm. Mediastinum and [place]: No enlarged lymph nodes. Esophagus: No wall thickening. Small hiatal hernia. Upper Abdomen: Caudate lobe hepatic cyst, benign. IMPRESSION: No pulmonary embolus, accounting for motion artifact and poor inspiratory effort. Bronchial thickening, likely indicating infectious or inflammatory bronchitis. Dictated by: Jaskaran Mcfadden M.D. on 10/11/2024 at 21:38 Approved by: Jaskaran Mcfadden M.D. on 10/11/2024 at 21:40 Chest x-ray: Radiologist's Impression: [place] [address] XRay Report Signed Patient: Micah Mooney MR#: [id number] : 1955 Acct:[id number] Age/Sex: 68 / M Date of Service: 10/11/24 Loc: ED Accession Number: [id number] Procedure: XR chest 1V Ordering Provider: Kar Zambrano MD PROCEDURE: XR CHEST 1V INDICATIONS: Chest Pain TECHNIQUE: One view of the chest was acquired. COMPARISON: None. FINDINGS: Surgical changes and devices: None. Lungs and pleura: Lungs are clear. No pleural effusions or pneumothorax. Mediastinum: Mediastinal contours appear normal. Heart size is normal. Bones and chest wall: No suspicious bony lesions. Overlying soft tissues appear unremarkable. IMPRESSION: No acute pulmonary process. Dictated by: Lakeisha Sibley M.D. on 10/11/2024 at 19:40 Approved by: Lakeisha Sibley M.D. on 10/11/2024 at 19:40 [facility] Narrative Medical decision making narrative: 68-year-old male resident of [facility], prior TBI date unclear, prior remote tracheostomy removed, hypertension on lisinopril, hyperlipidemia on atorvastatin, aspiration risk, cough, low-grade fever, mild tachycardia, low oxygen saturation. Possible pneumonia/sepsis. Nasal cannula oxygen replacement. EKG, chest x-ray, labs pending. Blood cultures requested. IV ceftriaxone, oral doxycycline if he can take orals. Chest x-ray negative. See radiology report. GFR favorable, CTA chest ordered. Respiratory panel positive for COVID. CTA chest shows no pulmonary embolus, no mention pulmonary infiltrates. See radiology report. Hypoxia with small amount of hemoptysis fever, tachycardia, oxygen requirement, COVID positive. Will admit to hospital. Will contact hospitalist. [id number], case discussed with Dr. Torres who accepts patient for admission, likely he will start antiviral remdesivir Critical Care Time Critical Care Time Critical Care Time: Yes Total Critical Care Time: 35 Attestation: The high probability of a clinically significant, sudden or life threatening deterioration of the [cardiopulmonary] system(s) required my full and direct attention, intervention and personal management. The aggregate critical care time was [35] minutes. This time is in addition to time spent performing reported procedures but includes the following: [x] Data Review and interpretation [x] Patient assessment and monitoring of vital signs [x] Documentation [x] Medication orders and management Discharge Plan Departure Patient Disposition: Admitted As Inpatient Clinical Impression: COVID-19, Hypoxia Admit Date/Time: 10/11/24 22:30 Admit Provider: Sudarshan Sanchez
[2024-10-12] VITALS (8 sets, daily range): BP systolic 119–140; BP diastolic 63–88; PULSE 58–82; RESP 16–22; TEMP 36.1–37; O2SAT 92–98
--- NOTE | 2024-10-12 00:20 | PM.HP.1 ---
History of Present Illness History of Present Illness Date Patient Seen: 10/12/24 Time Patient Seen: 02:00 Chief complaint: Aspirated Last Night, Cough Narrative: 68 y/o long-term resident of [facility], with a history of TBI, suspected aspiration pneumonia problems in the past, cognitive deficits,sent to hospital for increased coughing and hemoptysis. ED workup showing bronchitis, Covid 19 and hypoxia. Without infiltrates. Admitted with acute Covid bronchitis and hypoxemic respiratory failure. [facility] Medical History (Updated 10/12/24 @ 00:31 by Sudarshan Torres MD) Glaucoma Hypertension Depression HLD (hyperlipidemia) Left hemiparesis Cognitive deficits Social History Smoking Status: Unknown if ever smoked Meds Home Medications and Allergies Home Medications ?Medication ?Instructions ?Recorded ?Confirmed ?Type acetaminophen 325 mg tablet 650 mg PO Q4H PRN pain or fever 10/11/24 10/11/24 History acyclovir 400 mg tablet 800 mg PO Q8H herpes simplex 10/11/24 10/11/24 History atorvastatin 10 mg tablet 10 mg PO DAILY 10/11/24 10/11/24 History benzonatate 100 mg capsule 100 mg PO 3XD 10/11/24 10/11/24 History camphor 4.7 %-eucalyptus oil 1.2 1 applic topical DAILY 10/11/24 10/11/24 History %-menthol 2.6 % topical ointment ([employer] Vaporub) carboxymethylcellulose sodium 0.5 1 drp EYE-RIGHT Q6H 10/11/24 10/11/24 History % eye drops in a dropperette (Refresh Plus) cholecalciferol (vitamin D3) 25 1,000 unit PO DAILY 10/11/24 10/11/24 History mcg (1,000 unit) tablet (Vitamin D3) citalopram 10 mg tablet 10 mg PO DAILY 10/11/24 10/11/24 History dorzolamide 22.3 mg-timolol 6.8 2 drp EYE-RIGHT Q12H 10/11/24 10/11/24 History mg/mL eye drops hydrocortisone 1 % topical cream 1 applic topical TID PRN rash on 10/11/24 10/11/24 History face hydrocortisone 2.5 % topical cream 1 applic topical BID PRN red 10/11/24 10/11/24 History flakey patches latanoprost 0.005 % eye drops 1 drp EYE-RIGHT .qhs 10/11/24 10/11/24 History lisinopril 5 mg tablet 5 mg PO DAILY 10/11/24 10/11/24 History loratadine 10 mg tablet 10 mg PO DAILY 10/11/24 10/11/24 History meclizine 25 mg tablet 25 mg PO BID PRN dizziness 10/11/24 10/11/24 History nystatin 100,000 unit/gram topical 1 applic topical BID PRN rash 10/11/24 10/11/24 History powder ondansetron 4 mg disintegrating 4 mg PO Q4H PRN nausea/vomiting 10/11/24 10/11/24 History tablet prednisolone acetate 1 % eye 1 drp EYE-RIGHT QAM 10/11/24 10/11/24 History drops,suspension terbinafine HCl 1 % topical cream 1 applic topical BID 10/11/24 10/11/24 History (Antifungal (terbinafine)) Allergies Allergy/AdvReac Type Severity Reaction Status Date / Time Latex, Natural Rubber Allergy Verified 10/11/24 19:16 Penicillins Allergy Verified 10/11/24 19:16 Review of Systems Constitutional Comments: unobtainable due to cognitive deficits Exam Vital Signs (past 8 hours): - 10/11/24 19:00 10/11/24 19:21 10/11/24 19:30 Temperature 100.2 F H Pulse Rate 102 H 96 H Respiratory Rate 19 Blood Pressure 123/79 127/79 Pulse Oximetry 88 L 95 Oxygen Delivery Method Room Air Nasal Cannula Oxygen Flow Rate 2 10/11/24 19:30 10/11/24 20:00 10/11/24 20:00 Temperature Pulse Rate 99 H 90 Respiratory Rate 18 Blood Pressure 124/80 Pulse Oximetry 94 95 Oxygen Delivery Method Nasal Cannula Nasal Cannula Oxygen Flow Rate 2 2 10/11/24 20:10 10/11/24 20:30 10/11/24 20:30 Temperature Pulse Rate 86 90 Respiratory Rate 18 Blood Pressure 126/84 Pulse Oximetry 93 94 Oxygen Delivery Method Nasal Cannula Oximask Oxygen Flow Rate 2 4 10/11/24 21:00 10/11/24 21:30 10/11/24 22:00 Temperature Pulse Rate 79 48 L 82 Respiratory Rate Blood Pressure Pulse Oximetry 93 92 94 Oxygen Delivery Method Oximask Oximask Oximask Oxygen Flow Rate 4 4 4 10/11/24 22:30 10/11/24 23:30 Temperature 97.6 F Pulse Rate 79 77 Respiratory Rate 18 Blood Pressure 126/83 118/76 Pulse Oximetry 95 98 Oxygen Delivery Method Oximask Oxygen Flow Rate 4 4 Oxygen Delivery Method Oximask Oxygen Flow Rate 4 Narrative Exam Narrative: General - in no distress HEENT - atraumatic RS - CTA CVS - RRR GI - w/o distension Neuro - Rt hemiparesis, cognitive deficits Objective ECG Impression: NSR [address] scan - chest: Radiologist's impression: No pulmonary embolus, accounting for motion artifact and poor inspiratory effort. Bronchial thickening, likely indicating infectious or inflammatory bronchitis. Labs 10/11/24 19:48 10/11/24 19:48 Labs: Laboratory Results - last 24 hr 10/11/24 10/11/24 19:48 20:01 WBC 7.0 RBC 4.23 L Hgb 13.5 Hct 38.9 L MCV 91.9 MCH 31.9 MCHC 34.7 RDW 13.6 Plt Count 256 Neut % (Auto) 64.6 Lymph % (Auto) 16.5 L [place] % (Auto) 17.9 H Eos % (Auto) 0.4 L Baso % (Auto) 0.6 Neut # (Auto) 4500 Lymph # (Auto) 1200 [place] # (Auto) 1300 H Eos # (Auto) 0 Baso # (Auto) 0 PT 13.9 H INR 1.2 APTT 31 Sodium 131 L Potassium 4.3 Chloride 98 Carbon Dioxide 26 BUN 15 Creatinine 1.07 Estimated GFR > 60 BUN/Creatinine Ratio 14.0 Glucose 129 H Calcium 8.6 Magnesium 1.8 Total Bilirubin 0.6 AST 27 ALT 17 Alkaline Phosphatase 77 Total Creatine Kinase 50 L Troponin I < 0.012 NT-Pro-B Natriuret Pep 545 H Total Protein 7.0 Albumin 3.8 Globulin 3.2 Albumin/Globulin Ratio 1.2 Lipase 146 Chlamy pneumoniae PCR Not detected Adenovirus (PCR) Not detected B. pertussis DNA (PCR) Not detected B.parapertussis DNA PCR Not detected Coronavirus OC43 (PCR) Not detected Coronavirus HKU1 (PCR) Not detected Coronavirus 229E (PCR) Not detected SARS-CoV-2 (PCR) Detected H Coronavirus NL63 (PCR) Not detected Human Metapneumovir PCR Not detected Influenza Type A (PCR) Not detected Influenza Type B (PCR) Not detected M. pneumoniae (PCR) Not detected Parainfluenza 1 (PCR) Not detected Parainfluenza 2 (PCR) Not detected Parainfluenza 3 (PCR) Not detected Parainfluenza 4 (PCR) Not detected RSV (PCR) Not detected Entero/Rhino (PCR) Not detected Assessment & Plan Assessment and plan (1) Acute hypoxemic respiratory failure: Status: Acute (2) Acute bronchitis due to COVID-19 virus: Status: Acute (3) History of traumatic brain injury: Status: Acute (4) Cognitive deficits: Status: Acute (5) HLD (hyperlipidemia): Status: Acute (6) Depression: Status: Acute (7) Hypertension: Status: Acute (8) Glaucoma: Status: Acute Assessment & Plan narrative: Acute COVID 19 bronchitis / Acute hypoxemic respiratory failure - oxygen as needed for saturation > 92% - remdesivir - prn albuterol HTN - Lisinopril Depression - Celexa Glaucoma - dorzolamide, latanoprost Hx of TBI - supportive care DVT prophylaxis - Lovenox Patient consented to telemedicine, real time, audio-visual encounter with RN assisting during the exam. Patient located at [place], [place], provider located in [place]. Time-Based Coding :: [TOTAL MINUTES] spent with patient and on the chart (including review of chart, obtaining history, exam, reviewing outside data, placing orders, documenting exam and treatment plan, and counseling patient) on [DATE]. Quality VTE Deep Vein Thrombosis/Pulmonary Embolism Present on Admission: No
[2024-10-12] MEDS: REMDESIVIR 200 MG in SODIUM CHLORIDE 0.9% 250 ML 250 MG IV (05:08)
[2024-10-12 05:14] LABS: Add Manual Diff / Slide Review NO; Hematocrit 37.1 % (41-53); Hemoglobin 13.1 g/dL (13.5-17.5); Lymphocytes Absolute Auto 1800 /uL (1100-4500); Mean Corpuscular HGB Conc 35.2 % (30-36); Mean Corpuscular Hemoglobin 32.2 PG (26-34); Mean Corpuscular Volume 91.4 fL (80-100); Platelet Count 234 X10^3/uL (150-400)
[2024-10-12 05:40] LABS: Blood Urea Nitrogen 13 mg/dL (9-20); Calcium 8.1 mg/dL (8.4-10.2); Carbon Dioxide 24 mmol/L (22-32); Chloride 100 mmol/L (98-107); Estimated Glomerular Filt Rate > 60 mL/min (>60); Glucose 87 mg/dL (70-99); HEMOLYSIS 19 (0-50); Potassium 3.9 mmol/L (3.4-5.1); Sodium 132 mmol/L (137-145)
[2024-10-12] MEDS: LORATADINE 10 MG TABLET PO (08:41)
[2024-10-12] MEDS: CITALOPRAM 10 MG TABLET PO (08:41)
[2024-10-12] MEDS: ENOXAPARIN 40 MG/0.4 ML SYRINGE SUBCUT (08:42)
[2024-10-12] MEDS: prednisoLONE OPHTH SUSP 1 DROPS EYE-RIGHT (08:57)
[2024-10-12] MEDS: DORZOLAMIDE/TIMOLOL OPHTH 10 ML 1 DROPS EYE-RIGHT ×2 (08:57→20:27)
[2024-10-12] MEDS: CARBOXYMETHYLCELLULOSE DROPS 1 DROPS EYE-RIGHT ×2 (12:27→18:29)
--- NOTE | 2024-10-12 17:44 | PM.PN.1 ---
Subjective Subjective Interval history: 68-year-old male with history of TBI, previous history of aspiration pneumonia, hypertension, glaucoma, hyperlipidemia, chronic left hemiparesis who was admitted with acute COVID-19, acute hypoxic respiratory failure, and bronchitis. Patient reports he is feeling better today. He was able to eat well today. He states he slept well overnight. He does note that when he breathes in he ?hears a noise?. Exam Vital Signs (past 8 hours): - 10/12/24 10:26 10/12/24 12:59 10/12/24 16:00 Temperature 98.4 F 97.7 F Pulse Rate 77 66 Respiratory Rate 20 18 Blood Pressure 128/88 140/84 Pulse Oximetry 98 93 92 Oxygen Delivery Method Nasal Cannula Oxygen Flow Rate 3 4 4 Fraction of Inspired Oxygen 32 Fraction of Inspired Oxygen 32 SaO2/FiO2 Ratio 306 Oxygen Delivery Method Nasal Cannula Oxygen Flow Rate 4 Narrative Exam Narrative: GEN: Very pleasant middle-aged male, Alert and oriented x 3, NAD HEENT:NC, Face symmetric CHEST: Respiratory excursions symmetric, mildly increased work of breathing, diffuse bilateral crackles and rhonchi CV: RRR, no M/R/G ABD: Soft, NT/ND, BT present in all 4 quadrants, no organomegaly or masses EXTR: warm, well perfused, no C/C/E SKIN: warm and dry, no rash NEURO: Alert and oriented x 3, nonfocal Objective Labs 10/12/24 04:53 10/12/24 04:53 Labs: Laboratory Results - last 24 hr 10/11/24 10/11/24 10/12/24 19:48 20:01 04:53 WBC 7.0 9.8 RBC 4.23 L 4.06 L Hgb 13.5 13.1 L Hct 38.9 L 37.1 L MCV 91.9 91.4 MCH 31.9 32.2 MCHC 34.7 35.2 RDW 13.6 13.8 Plt Count 256 234 Neut % (Auto) 64.6 63.7 Lymph % (Auto) 16.5 L 18.7 L Cole % (Auto) 17.9 H 17.2 H Eos % (Auto) 0.4 L 0.1 L Baso % (Auto) 0.6 0.3 Neut # (Auto) 4500 6200 Lymph # (Auto) 1200 1800 Cole # (Auto) 1300 H 1700 H Eos # (Auto) 0 0 Baso # (Auto) 0 0 PT 13.9 H INR 1.2 APTT 31 Sodium 131 L 132 L Potassium 4.3 3.9 Chloride 98 100 Carbon Dioxide 26 24 BUN 15 13 Creatinine 1.07 0.93 Estimated GFR > 60 > 60 BUN/Creatinine Ratio 14.0 14.0 Glucose 129 H 87 Calcium 8.6 8.1 L Magnesium 1.8 Total Bilirubin 0.6 AST 27 ALT 17 Alkaline Phosphatase 77 Total Creatine Kinase 50 L Troponin I < 0.012 NT-Pro-B Natriuret Pep 545 H Total Protein 7.0 Albumin 3.8 Globulin 3.2 Albumin/Globulin Ratio 1.2 Lipase 146 Chlamy pneumoniae PCR Not detected Adenovirus (PCR) Not detected B. pertussis DNA (PCR) Not detected B.parapertussis DNA PCR Not detected Coronavirus OC43 (PCR) Not detected Coronavirus HKU1 (PCR) Not detected Coronavirus 229E (PCR) Not detected SARS-CoV-2 (PCR) Detected H Coronavirus NL63 (PCR) Not detected Human Metapneumovir PCR Not detected Influenza Type A (PCR) Not detected Influenza Type B (PCR) Not detected M. pneumoniae (PCR) Not detected Parainfluenza 1 (PCR) Not detected Parainfluenza 2 (PCR) Not detected Parainfluenza 3 (PCR) Not detected Parainfluenza 4 (PCR) Not detected RSV (PCR) Not detected Entero/Rhino (PCR) Not detected [facility] Medical History (Updated 10/12/24 @ 00:31 by Sudarshan Torres MD) Glaucoma Hypertension Depression HLD (hyperlipidemia) Left hemiparesis Cognitive deficits Social History Smoking Status: Unknown if ever smoked Assessment & Plan Assessment & Plan narrative: 1. Acute hypoxic respiratory failure Etiology is COVID-19. He is on 4 liters/minute oxygen presently. Continue supplemental oxygen, remdesivir, albuterol. Will add dexamethasone. 2. Acute bronchitis secondary to COVID Continue supportive care as noted. 3. History of traumatic brain injury Patient does have some degree of cognitive deficits but is able to communicate well. 4. Hypertension Continue lisinopril 5. Hyperlipidemia On atorvastatin at baseline 6. Glaucoma Continue dorzolamide/timolol and latanoprost 7. Depression Continue Celexa 8. Hyponatremia Mild. Will follow. Code status Full Prophylaxis On Lovenox Disposition Plan to discharge back to [facility] when medically stable Time-Based Coding :: [TOTAL MINUTES] spent with patient and on the chart (including review of chart, obtaining history, exam, reviewing outside data, placing orders, documenting exam and treatment plan, and counseling patient) on [DATE]. Quality VTE Deep Vein Thrombosis/Pulmonary Embolism Present on Admission: No
[2024-10-12] MEDS: LATANOPROST 0.005% OPHTH 2.5 ML 1 DROPS EYE-RIGHT (20:29)
[2024-10-13] MEDS: CARBOXYMETHYLCELLULOSE DROPS 1 DROPS EYE-RIGHT ×4 (00:13→17:44)
[2024-10-13] MEDS: BENZONATATE 100 MG CAPSULE PO ×2 (00:14→20:50)
[2024-10-13 03:27] VITALS: BP 109/73; PULSE 60; RESP 17; TEMP 35.8; O2SAT 98
[2024-10-13 04:55] LABS: Add Manual Diff / Slide Review NO; Hematocrit 39.9 % (41-53); Hemoglobin 13.8 g/dL (13.5-17.5); Lymphocytes Absolute Auto 1500 /uL (1100-4500); Mean Corpuscular HGB Conc 34.6 % (30-36); Mean Corpuscular Hemoglobin 31.8 PG (26-34); Mean Corpuscular Volume 92.0 fL (80-100); Platelet Count 251 X10^3/uL (150-400)
[2024-10-13 05:24] LABS: Alanine Aminotransferase 18 IU/L (<50); Albumin 3.6 g/dL (3.5-5.0); Albumin Globulin Ratio 1.1 (1.0-2.8); Alkaline Phosphatase 80 U/L (38-126); Blood Urea Nitrogen 18 mg/dL (9-20); Calcium 8.4 mg/dL (8.4-10.2); Carbon Dioxide 25 mmol/L (22-32); Chloride 101 mmol/L (98-107); Estimated Glomerular Filt Rate > 60 mL/min (>60); Globulin 3.2 g/dL (1.7-4.1); Glucose 129 mg/dL (70-99); HEMOLYSIS < 15 (0-50); Potassium 4.4 mmol/L (3.4-5.1); Sodium 132 mmol/L (137-145); Total Protein 6.8 g/dL (6.3-8.2)
--- NOTE | 2024-10-13 07:19 | CM.DANOTE ---
Patient is a 68 yo male who was admitted INPT Status on 10/11/24 for SOB/COVID. Pt has [facility] and [facility] for insurance and his PCP is Bruce Kapoor. EMR was reviewed. Per MD, pt with hx of TBI and admitted with Acute Resp Failure secondary to COVID and bronchitis. Pt was on 4LO2, no home O2 at baseline, and attempting to wean to room air. Likely another couple days, making slow progress and tolerating his meal and feeling better. SW spoke to staff at [facility] and they confirm that pt is a resident at their facility and is mostly bed ridden at baseline and staff use a nelia for transfers into w/c and confirms no home oxygen at baseline. Pt typically is able to answer questions appropriately but forgetful. Pt has local supportive siblings, primary contact for [place] is pt's sister Freda but also his sister Doris and a local brother. Updated [facility] that pt likely needs another couple days and faxed clinicals to review towards likely discharge back since pt w/c bound at baseline. SIOMARA Major Discharge Planning/Care Management CM Discharge Assessment Start: 10/11/24 22:42 Freq: Status: Active Protocol: Document 10/13/24 07:17 BF (Rec: 10/13/24 07:19 BF [id number]) Discharge Planning Assessment Assigned Discharge SIOMARA Wilkins [employer] DPOA/Assigned Sister Freda Designee Name Advance Directives? Yes: POLST Advance Directives Yes on File History Provided By Patient,Medical Record Has Patient been No admitted in last 30 days? Prior Living Assisted Living Arrangements Comment [facility] Household Members none Type of Relies on Others transporation used prior to admit Facility Name [facility] Admitted From: Willing to Return to Yes Facility? Independent with ADL No 's Is patient alert and Yes: somewhat, has TBI oriented? Needs Assistance Meal Prep,Managing Medications,Home Chores / Shopping With Caregiver for No Another DME Already Rented / Wheelchair Owned Comment Likely return to [facility] Barriers to No Discharge Discharge Plan Assisted Living Facility Transportation Likely facility w/c van Arrangement Additional Comment Pending progress, may need PT but pt is mostly bedridden with nelia at baseline Whiteboard Updated Yes in Patient Room with name and ext. # of [place] Machine Operator Review Status In Process Please Provide Date 10/13/24 Initial DC Assessment Was Performed Next Review Type Continued Stay Review
[2024-10-13 08:55] VITALS: BP 126/87; PULSE 67; RESP 18; TEMP 35.7; O2SAT 96
[2024-10-13] MEDS: DORZOLAMIDE/TIMOLOL OPHTH 10 ML 1 DROPS EYE-RIGHT ×2 (09:18→20:46)
[2024-10-13] MEDS: prednisoLONE OPHTH SUSP 1 DROPS EYE-RIGHT (09:18)
[2024-10-13] MEDS: ENOXAPARIN 40 MG/0.4 ML SYRINGE SUBCUT (09:19)
[2024-10-13] MEDS: LORATADINE 10 MG TABLET PO (09:19)
[2024-10-13] MEDS: CITALOPRAM 10 MG TABLET PO (09:19)
[2024-10-13] MEDS: REMDESIVIR 100 MG in SODIUM CHLORIDE 0.9% 250 ML 250 MG IV (09:49)
[2024-10-13 12:00] VITALS: BP 132/88; PULSE 60; RESP 17; TEMP 35.9; O2SAT 95
[2024-10-13 16:00] VITALS: BP 133/90; PULSE 68; RESP 18; TEMP 36.1; O2SAT 96
--- NOTE | 2024-10-13 16:34 | PC.WOUNDPHOT ---
penile scrotal right axillary
--- NOTE | 2024-10-13 16:34 | PC.NURSE ---
During the pt's bed bath today, skin breakdown was noted on pt's scrotum, as well as redness and bleeding around the base of his penis. Pt also has a rash around his groin, and in his right armpit (see wound photos). Pt has been wearing a condom catheter, which is made of latex. Pt has a noted latex allergy and natural rubber allergy. Pt denies pain, but confirmed his latex allergy. Condom catheter removed. notified, see new orders.
--- NOTE | 2024-10-13 18:18 | P.PN_ITS ---
Subjective Subjective Interval history: 68-year-old male with history of TBI, previous history of aspiration pneumonia, hypertension, glaucoma, hyperlipidemia, chronic left hemiparesis who was admitted with acute COVID-19, acute hypoxic respiratory failure, and bronchitis. Pt reports he is feeling better today. Eating well. Reports that he is not coughing as much. Oxygen need is down to 2 L. he states he slept very well last night. Exam Vital Signs (past 8 hours): - 10/13/24 12:00 10/13/24 16:00 Temperature 96.6 F L 96.9 F L Pulse Rate 60 68 Respiratory Rate 17 18 Blood Pressure 132/88 133/90 Pulse Oximetry 95 96 Oxygen Flow Rate 4 2 Fraction of Inspired Oxygen 32 SaO2/FiO2 Ratio 306 Oxygen Delivery Method Room Air Oxygen Flow Rate 2 Narrative Exam Narrative: GEN: Very pleasant middle-aged male, Alert and oriented x 2, NAD HEENT:NC, Face symmetric CHEST: Respiratory excursions symmetric, mildly coarse bilaterally, no crackles or rhonchi noted today CV: RRR, no M/R/G ABD: Soft, NT/ND, BT present in all 4 quadrants, no organomegaly or masses EXTR: warm, well perfused, no C/C/E SKIN: warm and dry, no rash NEURO: Alert and oriented x 2, nonfocal Objective Labs 10/13/24 04:36 10/13/24 04:36 Labs: Laboratory Results - last 24 hr 10/13/24 04:36 WBC 5.6 RBC 4.34 L Hgb 13.8 Hct 39.9 L MCV 92.0 MCH 31.8 MCHC 34.6 RDW 13.6 Plt Count 251 Neut % (Auto) 68.5 Lymph % (Auto) 27.5 [place] % (Auto) 3.6 Eos % (Auto) 0.0 L Baso % (Auto) 0.4 Neut # (Auto) 3800 Lymph # (Auto) 1500 [place] # (Auto) 200 Eos # (Auto) 0 Baso # (Auto) 0 Sodium 132 L Potassium 4.4 Chloride 101 Carbon Dioxide 25 BUN 18 Creatinine 0.82 Estimated GFR > 60 BUN/Creatinine Ratio 22.0 Glucose 129 H Calcium 8.4 Total Bilirubin 0.3 AST 28 ALT 18 Alkaline Phosphatase 80 Total Protein 6.8 Albumin 3.6 Globulin 3.2 Albumin/Globulin Ratio 1.1 [facility] Medical History (Updated 10/12/24 @ 00:31 by Sudarshan Torres MD) Glaucoma Hypertension Depression HLD (hyperlipidemia) Left hemiparesis Cognitive deficits Social History household members: none Smoking Status: Unknown if ever smoked Assessment & Plan Assessment & Plan narrative: 1. Acute hypoxic respiratory failure Etiology is COVID-19. He weaned from 4 liters/minute to 2 liters/minute oxygen overnight. Continue supplemental oxygen, remdesivir (day 2), albuterol. Added dexamethasone yesterday, currently day 2 2. Acute bronchitis secondary to COVID Continue supportive care as noted. 3. History of traumatic brain injury Patient does have some degree of cognitive deficits but is able to communicate well. 4. Hypertension Continue lisinopril 5. Hyperlipidemia On atorvastatin at baseline 6. Glaucoma Continue dorzolamide/timolol and latanoprost 7. Depression Continue Celexa 8. Hyponatremia Mild. Stable at 132 Code status Full Prophylaxis On Lovenox Disposition Plan to discharge back to [facility] once off of oxygen, possibly as soon as tomorrow Time-Based Coding :: [TOTAL MINUTES] spent with patient and on the chart (including review of chart, obtaining history, exam, reviewing outside data, placing orders, documenting exam and treatment plan, and counseling patient) on [DATE]. Quality VTE Deep Vein Thrombosis/Pulmonary Embolism Present on Admission: No
[2024-10-13 20:41] VITALS: BP 132/84; PULSE 64; RESP 21; TEMP 35.9; O2SAT 97
[2024-10-13] MEDS: LATANOPROST 0.005% OPHTH 2.5 ML 1 DROPS EYE-RIGHT (20:46)
[2024-10-13] MEDS: NYSTATIN POWDER 15GM 1 APPLIC TOP (20:48)
[2024-10-13 22:17] VITALS: O2SAT 97
[2024-10-14] VITALS (8 sets, daily range): BP systolic 114–141; BP diastolic 78–92; PULSE 49–67; RESP 18–20; TEMP 35.6–36.6; O2SAT 92–97
[2024-10-14 05:20] LABS: Add Manual Diff / Slide Review NO; Hematocrit 38.1 % (41-53); Hemoglobin 13.2 g/dL (13.5-17.5); Lymphocytes Absolute Auto 2200 /uL (1100-4500); Mean Corpuscular HGB Conc 34.8 % (30-36); Mean Corpuscular Hemoglobin 31.8 PG (26-34); Mean Corpuscular Volume 91.3 fL (80-100); Platelet Count 259 X10^3/uL (150-400)
[2024-10-14] MEDS: CARBOXYMETHYLCELLULOSE DROPS 1 DROPS EYE-RIGHT ×4 (05:23→22:11)
[2024-10-14 05:42] LABS: Alanine Aminotransferase 17 IU/L (<50); Albumin 3.4 g/dL (3.5-5.0); Albumin Globulin Ratio 1.1 (1.0-2.8); Alkaline Phosphatase 75 U/L (38-126); Blood Urea Nitrogen 17 mg/dL (9-20); Calcium 8.5 mg/dL (8.4-10.2); Carbon Dioxide 27 mmol/L (22-32); Chloride 99 mmol/L (98-107); Estimated Glomerular Filt Rate > 60 mL/min (>60); Globulin 3.1 g/dL (1.7-4.1); Glucose 111 mg/dL (70-99); HEMOLYSIS < 15 (0-50); Potassium 4.1 mmol/L (3.4-5.1); Sodium 131 mmol/L (137-145); Total Protein 6.5 g/dL (6.3-8.2)
[2024-10-14] MEDS: ENOXAPARIN 40 MG/0.4 ML SYRINGE SUBCUT (08:55)
[2024-10-14] MEDS: CITALOPRAM 10 MG TABLET PO (08:55)
[2024-10-14] MEDS: LORATADINE 10 MG TABLET PO (08:55)
[2024-10-14] MEDS: NYSTATIN POWDER 15GM 1 APPLIC TOP ×3 (08:56→22:22)
[2024-10-14] MEDS: prednisoLONE OPHTH SUSP 1 DROPS EYE-RIGHT (08:56)
[2024-10-14] MEDS: DORZOLAMIDE/TIMOLOL OPHTH 10 ML 1 DROPS EYE-RIGHT ×2 (08:56→22:23)
[2024-10-14] MEDS: SODIUM CHLORIDE 0.9% FLUSH 10 ML IV ×2 (08:57→22:25)
[2024-10-14] MEDS: REMDESIVIR 100 MG in SODIUM CHLORIDE 0.9% 250 ML 250 MG IV (10:08)
--- NOTE | 2024-10-14 11:44 | CM.DPNOTE ---
Addendum entered by SIOMARA Tomlinson 10/14/24 16:21: finally got return call from [facility] after this HEALTH PLAN ADVISOR left 10-15 voicemails on [facility] lines. from [place]- will send someone to pick pt up. time pending. HEALTH PLAN ADVISOR placed signed med list in chart. HEALTH PLAN ADVISOR faxed dc summary to [facility]. no word from [facility] on time of transport as of 1619. Will continue to follow closely if [facility] does not leaf size picker pt Monday Original Note: DCP Note HEALTH PLAN ADVISOR reviewed EMR per RN, pt oscillating between needing room air/2ltrs O2. most recent vitals in chart has pt at 2ltrs. per provider in morning rounds, anticipate one more day and dc tomorrow. HEALTH PLAN ADVISOR lvm with [facility] x2, response pending ([phone]. both with ext 1 nurses station and ext 3 corporate administrator) P: anticipate dc tomorrow to [facility] pending on room air. CM team will continue to follow closely for DCP coordination SIOMARA Tomlinson
--- NOTE | 2024-10-14 13:12 | P.DS_ITS ---
History of Present Illness History of Present Illness Date Patient Seen: 10/14/24 Chief complaint: COVID pneumonia mild Narrative: Chief complaint: Shortness for breath and cough due to Bronchitis secondary to COVID with hypoxia History of present illness: 69-year-old male at an adult living facility with a previous history of traumatic brain injury with admitted with acute COVID lower respiratory infection with hypoxia. Hospital course: 10/11-10/14: Patient gradually improved over the course of his hospitalization with response to Decadron remdesivir. On the day of discharge 10/14 patient was breathing comfortably on room air at a good night sleep minimal coughing a little bit of stuffy nose and was discharged back to the assisted living facility. Review of systems: No fever or chills No chest pain palpitations No wheezing or shortness for breath No abdominal pain nausea vomiting diarrhea Physical exam: No acute distress alert cogent very pleasant HEENT unremarkable Heart rate and rhythm regular Lungs clear Abdomen nontender Assessment and plan: . Acute hypoxic respiratory failure Etiology is COVID-19. He weaned from 4 liters/minute to 2 liters/minute oxygen overnight. Continue supplemental oxygen, remdesivir now comfortable on room air discontinue remdesivir and Decadron (critical Care Medicine 2020) 2. Acute bronchitis secondary to COVID Resolved 3. History of traumatic brain injury Patient does have some degree of cognitive deficits but is able to communicate well. 4. Hypertension Continue lisinopril 5. Hyperlipidemia On atorvastatin at baseline 6. Glaucoma Continue dorzolamide/timolol and latanoprost 7. Depression Continue Celexa 8. Hyponatremia Mild. Stable at 132 Code status Full Prophylaxis On Lovenox Disposition Plan to discharge back to [facility] once off of oxygen, possibly as soon as tomorrow Time-Based Coding :: 35 minutes spent with patient and on the chart (including review of chart, obtaining history, exam, reviewing outside data, placing orders, documenting exam and treatment plan, and counseling patient). Discharge Providers Provider Date of admission: 10/11/24 22:30 Discharge Date: 10/14/24 Primary care physician: Bruce Kapoor MD Consults: 10/13/24 10:22 Consult to Speech Therapy Evaluate & Treat Comment: Physician Instructions: Evaluate and treat Discharge provider: Maldonado Victor MD Exam Vital Signs (past 8 hours): - 10/14/24 08:00 Temperature 96.1 F L Pulse Rate 58 L Respiratory Rate 20 Blood Pressure 114/83 Pulse Oximetry 94 Oxygen Flow Rate 2 Fraction of Inspired Oxygen 32 SaO2/FiO2 Ratio 306 Oxygen Delivery Method Nasal Cannula Oxygen Flow Rate 2 Objective Labs 10/14/24 04:44 10/14/24 04:44 Labs: Laboratory Results - last 24 hr 10/14/24 04:44 WBC 6.4 RBC 4.17 L Hgb 13.2 L Hct 38.1 L MCV 91.3 MCH 31.8 MCHC 34.8 RDW 13.5 Plt Count 259 Neut % (Auto) 54.7 Lymph % (Auto) 33.8 [place] % (Auto) 11.2 Eos % (Auto) 0.0 L Baso % (Auto) 0.3 Neut # (Auto) 3500 Lymph # (Auto) 2200 [place] # (Auto) 700 Eos # (Auto) 0 Baso # (Auto) 0 Sodium 131 L Potassium 4.1 Chloride 99 Carbon Dioxide 27 BUN 17 Creatinine 0.73 Estimated GFR > 60 BUN/Creatinine Ratio 23.3 H Glucose 111 H Calcium 8.5 Total Bilirubin 0.3 AST 28 ALT 17 Alkaline Phosphatase 75 Total Protein 6.5 Albumin 3.4 L Globulin 3.1 Albumin/Globulin Ratio 1.1 [facility] Medical History (Updated 10/12/24 @ 00:31 by Sudarshan Torres MD) Glaucoma Hypertension Depression HLD (hyperlipidemia) Left hemiparesis Cognitive deficits Social History household members: none Smoking Status: Unknown if ever smoked Discharge Plan Discharge Plan Patient Disposition: Assisted Living Discharge orders & Medications Discharge Orders: Discharge (Order); Ordered 10/14/24 Ordered By: Maldonado Victor Prescriptions: Continued acetaminophen 325 mg tablet 650 mg PO Q4H PRN (Reason: pain or fever) acyclovir 400 mg tablet 800 mg PO Q8H atorvastatin 10 mg tablet 10 mg PO DAILY benzonatate 100 mg capsule 100 mg PO 3XD carboxymethylcellulose sodium [Refresh Plus] 0.5 % dropperette 1 drp EYE-RIGHT Q6H citalopram 10 mg tablet 10 mg PO DAILY dorzolamide-timolol 22.3-6.8 mg/mL drops 2 drp EYE-RIGHT Q12H hydrocortisone 1 % cream 1 applic topical TID PRN (Reason: rash on face) hydrocortisone 2.5 % cream 1 applic topical BID PRN (Reason: red flakey patches) latanoprost 0.005 % drops 1 drp EYE-RIGHT .qhs lisinopril 5 mg tablet 5 mg PO DAILY nystatin 100,000 unit/gram powder 1 applic topical BID PRN (Reason: rash) loratadine 10 mg tablet 10 mg PO DAILY prednisolone acetate 1 % drops,suspension 1 drp EYE-RIGHT QAM meclizine 25 mg tablet 25 mg PO BID PRN (Reason: dizziness) cholecalciferol (vitamin D3) [Vitamin D3] 25 mcg (1,000 unit) tablet 1,000 unit PO DAILY terbinafine HCl [Antifungal (terbinafine)] 1 % cream 1 applic topical BID Vicks Vaporub 4.7-1.2-2.6 % ointment 1 applic topical DAILY ondansetron 4 mg tablet,disintegrating 4 mg PO Q4H PRN (Reason: nausea/vomiting) Follow up/Referrals: Bruce Kapoor MD [Primary Care Provider, Internal Medicine] Visit Report/Discharge Packet Stand Alone Forms: Patient Portal/API, Stroke Signs & Symptoms Discharge Data Primary Care Provider: Bruce Kapoor Quality VTE Deep Vein Thrombosis/Pulmonary Embolism Present on Admission: No
[2024-10-14] MEDS: BENZONATATE 100 MG CAPSULE PO ×2 (15:40→22:11)
[2024-10-14] MEDS: ACYCLOVIR 400 MG TABLET 800 MG PO ×2 (15:40→22:12)
--- NOTE | 2024-10-14 17:33 | PC.NURSE ---
Addendum entered by Irena Olivo R.N. 10/14/24 18:13: Received a call from [facility] and was notified that they are unable to roller picker tonight and that they would be picking patient up in the morning, unable to give a more specific time. Anju VANN notified. Original Note: Called nurses station at [facility] and nurse confirmed that they were planning on bringing him home tonight in regards to pt's discharge. When asked on a timeframe, the nurse was unable to give a time of roller picker as they were waiting on the return of the bus but that it would be for sure tonight. Anju VANN updated.
--- NOTE | 2024-10-14 17:50 | ST.IPCSEOM ---
Visit Care Team Role Provider Type Bruce Kapoor MD Family Provider Non-Staff Primary Care Provider Specialty: Internal Medicine Address: Phone: Fax: Email: Kar Zambrano MD Emergency Provider Physician Referring Provider Specialty: Emergency Medicine Address: [address] [place] [address], [id number] Fax: Email: [email or web address] Sudarshan Torres MD Admit Provider Physician Attending Provider Specialty: Internal Medicine Address: [address] [place] [address], [id number] Email: [email or web address] Current Diagnoses Hyperlipidemia, unspecified (10/11/24) Depression, unspecified (10/11/24) Unspecified glaucoma (10/11/24) Essential (primary) hypertension (10/11/24) Acute bronchitis due to other specified organisms (10/11/24) Acute respiratory failure with hypoxia (10/11/24) Other symptoms and signs involving cognitive functions and awareness (10/11/24) COVID-19 (10/11/24) Personal history of traumatic brain injury (10/11/24) Past Medical History (Last Updated 10/12/24 @ 00:31 by Sudarshan Torres MD) Cognitive deficits (Medical) Depression (Medical) Glaucoma (Medical) HLD (hyperlipidemia) (Medical) Hypertension (Medical) Left hemiparesis (Medical) Speech-Language Pathology Swallow Evaluation 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 Correia Reason for Referral swallow evaluation Setting Assessment Location Acute Care Visit Type Note Type Initial evaluation Patient Information History Per H&P 10/12/2024: 68 y/o long-term resident of [facility], with a history of TBI, suspected aspiration pneumonia problems in the past, cognitive deficits, sent to hospital for increased coughing and hemoptysis. ED workup showing bronchitis, Covid 19 and hypoxia. Without infiltrates. Admitted with acute Covid bronchitis and hypoxemic respiratory failure. Per most recent Progress Note 10/13/2024: Pt reports he is feeling better today. Eating well. Reports that he is not coughing as much. Oxygen need is down to 2 L. he states he slept very well last night. Per discharge summary 10/14/2024: 10/11-10/14: Patient gradually improved over the course of his hospitalization with response to Decadron remdesivir. On the day of discharge 10/14 patient was breathing comfortably on room air at a good night sleep minimal coughing a little bit of stuffy nose and was discharged back to the assisted living facility. Per CT chest 10/11/2024: No pulmonary embolus, accounting for motion artifact and poor inspiratory effort. Bronchial thickening, likely indicating infectious or inflammatory bronchitis. Subjective Pt found sitting upright in bedside chair, alert, Observations breathing comfortably on room air. RN cleared ST to work with pt. RN reported pt came from [place] on a puree/honey thick liquid diet and that pt was set to d/ c back soon. Pt agreeable to participate in evaluation. Difficult to obtain hx from pt d/t cognitive deficits and dysarthria. Pt known to ST department at [facility] with x2 MBSS completed previously on 09/03/2021 and 01/25/2023 revealing mild-moderate oral phase dysphagia characterized by slow and disorganized mastication and swallow initiation. No changes to pt's diet were recommended at that time and ST services targeting safe swallow strategies were recommended. Pt was seen for OP ST CSE on 02/02/2024, however, pt was d /c d/t never f/u for tx sessions. At that time, ST recommended repeating MBSS to guide POC, IDDSI 6/soft and bite sized and IDDSI 0/thin diet, and safe swallow strategies. Reported by Patient/Caregiver Comment Pt u/a to confirm/deny hx of dysphagia or baseline diet . Per RN pt came from [place] on a puree/honey thick liquid diet. Baseline Feeding Needs some assistance Method The IDDSI Framework Protocol: IDDSI.1 Objective Assessment Mental Status Alert,Responsive,Cooperative,Confused Oral Integrity WFL Dentition Within normal limits Lip Function Within normal limits Observation of Lips Left sided weakness/Drooping at Rest Tongue Function Mild impairment Observations of Involuntary movement(s) Tongue at Rest Tongue Incoordination Lateralization Jaw Function Within normal limits Hard/Soft Palate Within normal limits Function Comment Oral mechanism exam revealed adequate natural dentition and oral health. Concern for involvement of cranial nerves VII and XII d/t left weakness and general incoordination. No baseline cough observed prior to PO trials. ST provided extensive oral care with toothbrush, toothpaste, and mouthwash prior to PO trials. Food and Liquid Trials Position During Upright (90 degrees),In chair Assessment Liquids Trialed Thin (IDDSI 0) Solid Trials Purred (IDDSI 4) Administration Type Tea spoon,Cup single sip,Straw,Needs some assistance Oral Impairment Moderately impaired Oral Phase Comments Pt observed across trials of thin liquids via tsp, cup sip, and straw, as well as puree (x5 tsp apple sauce). Further trials of soft solids and regular solids deferred during CSE d/t pt's hx of oral dysphagia, observed weakness/incoordination, and RN report of pt's baseline diet from [place] being puree. Pt exhibited poor bolus retrieval, oral containment, disorganized mastication, and delayed swallow initiation d/t general incoordination and weakness of swallowing musculature. Pharyngeal Phase No overt s/sx of aspiration noted. No globus sensation Comments reported. However, pt observed to be poor historian d/t cognitive deficits. The IDDSI Framework Protocol: IDDSI.1 Findings Swallowing Function Oral phase dysphagia Swallowing Function Mild-moderate oral phase dysphagia, u/a to rule out Comments pharyngeal dysphagia Severity of Swallow Mildly-moderately impaired Impairment Contributing Factors Reduced oral strength/coordination/sensation, to Swallow Mastication inefficiency,Impaired oral-pharyngeal Impairment transport,Delayed swallow initiation Comments Cognitive deficits Prognosis Fair Based on Cognitive status,Comorbidities Comment Pt presents with mild-moderate chronic oral phase dysphagia characterized poor bolus retrieval, oral containment, bolus manipulation, and oral clearance d/t incoordination and weakness of swallow musculature. Unable to rule out pharyngeal phase dysphagia at this time without further evaluation with use of imaging via MBSS. Pt is at risk for aspiration/development of aspiration PNA d/t his dependence for feeding/oral care , multiple medical dx, and poor cognitive-linguistic skills. Recommend diet of puree and thin liquids ( preferably water via [place] Water Protocol) with strict aspiration precautions (feed only when awake/ alert, reduce distractions, oral care TID, small sips, slow rate, sit upright) as well as feeding assistance. These recommendations are supported by the pt's WBC WNL and pulmonary stability on room air (Eda, et al, 1998). Thickened liquids were NOT used in this assessment. Thickened liquids present an increased risk of UTI, constipation, cognitive impairment, functional decline, and are associated with risks of dehydration, increased pharyngeal residue, and are more likely to be silently aspirated than thin liquids with greater risk of developing aspiration PNA if aspirated (Bossman 2016). This supports the need to confirm if pt requires thickened liquids via MBSS prior to recommending them. In the setting of chronic dysphagia with planned d/c from hospital, recommend completing MBSS at next level of care to guide diet recommendations and safe swallow strategies. 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
[2024-10-14] MEDS: LATANOPROST 0.005% OPHTH 2.5 ML 1 DROPS EYE-RIGHT (22:11)
[2024-10-14] MEDS: TERBINAFINE 1% 1 EACH TOP (22:25)
[2024-10-15 03:00] VITALS: BP 124/82; PULSE 57; RESP 18; TEMP 35.6; O2SAT 96
[2024-10-15] MEDS: ACYCLOVIR 400 MG TABLET 800 MG PO (06:48)
[2024-10-15] MEDS: CARBOXYMETHYLCELLULOSE DROPS 1 DROPS EYE-RIGHT (06:50)
[2024-10-15 07:00] VITALS: BP 161/72; PULSE 57; RESP 20; TEMP 35.7; O2SAT 96
[2024-10-15] MEDS: ATORVASTATIN 20 MG TABLET 10 MG PO (08:44)
[2024-10-15] MEDS: CHOLECALCIFEROL (VITAMIN D3) 1,000 UNIT TABLET 1000 UNIT PO (08:44)
[2024-10-15] MEDS: ENOXAPARIN 40 MG/0.4 ML SYRINGE SUBCUT (08:44)
[2024-10-15] MEDS: CITALOPRAM 10 MG TABLET PO (08:44)
[2024-10-15] MEDS: LORATADINE 10 MG TABLET PO (08:44)
[2024-10-15] MEDS: BENZONATATE 100 MG CAPSULE PO (08:44)
[2024-10-15] MEDS: prednisoLONE OPHTH SUSP 1 DROPS EYE-RIGHT (08:46)
[2024-10-15] MEDS: NYSTATIN POWDER 15GM 1 APPLIC TOP (08:47)
[2024-10-15] MEDS: DORZOLAMIDE/TIMOLOL OPHTH 10 ML 1 DROPS EYE-RIGHT (08:47)
[2024-10-15] MEDS: SODIUM CHLORIDE 0.9% FLUSH 10 ML IV (08:48)
--- NOTE | 2024-10-15 10:59 | CM.DPNOTE ---
DCP note per Rn report/chart, [facility] never came to picker feeder pt yesterday. 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 PRODUCTION CELL LEADER spoke with [facility] receptionist, will contact [facility] transport on our behalf. [facility] transport came to take pt back at around 0915, no warning from [facility] staff. P: dc today to [facility]. CM team will continue to follow as needed SIOMARA Tomlinson
--- NOTE | 2024-10-15 11:05 | PC.NURSE ---
Discharge Note Patient A&O, VSS, RA, no complaints of pain/discomfort. Discharge packet reviewed with patient, all questions/concerns addressed. PIV discontinued. Patient changed and toileted prior to discharge skin intact, redness to bottom improved, skin blancheable. All belongings packed and given to facility staff along with discharge packet. Patient taken down via wheelchair by facility staff to POV.
--- NOTE | 2024-10-15 18:45 | P.DS_ITS ---
History of Present Illness History of Present Illness Date Patient Seen: 10/15/24 Chief complaint: COVID pneumonia mild Narrative: Chief complaint: Shortness for breath and cough due to Bronchitis secondary to COVID with hypoxia History of present illness: 69-year-old male at an adult living facility with a previous history of traumatic brain injury with admitted with acute COVID lower respiratory infection with hypoxia. Hospital course: 10/11-10/15: Patient gradually improved over the course of his hospitalization with response to Decadron remdesivir. On the day of discharge 10/14 patient was breathing comfortably on room air at a good night sleep minimal coughing a little bit of stuffy nose and was discharged back to the assisted living facility. Review of systems: No fever or chills No chest pain palpitations No wheezing or shortness for breath No abdominal pain nausea vomiting diarrhea Physical exam: No acute distress alert cogent very pleasant HEENT unremarkable Heart rate and rhythm regular Lungs clear Abdomen nontender Assessment and plan: . Acute hypoxic respiratory failure Etiology is COVID-19. He weaned from 4 liters/minute to 2 liters/minute oxygen overnight. Continue supplemental oxygen, remdesivir now comfortable on room air discontinue remdesivir and Decadron (critical Care Medicine 2020) 2. Acute bronchitis secondary to COVID Resolved 3. History of traumatic brain injury Patient does have some degree of cognitive deficits but is able to communicate well. 4. Hypertension Continue lisinopril 5. Hyperlipidemia On atorvastatin at baseline 6. Glaucoma Continue dorzolamide/timolol and latanoprost 7. Depression Continue Celexa 8. Hyponatremia Mild. Stable at 132 Code status Full Prophylaxis On Lovenox Disposition Plan to discharge back to [facility] once off of oxygen, possibly as soon as tomorrow Time-Based Coding :: 35 minutes spent with patient and on the chart (including review of chart, obtaining history, exam, reviewing outside data, placing orders, documenting exam and treatment plan, and counseling patient). Discharge Providers Provider Date of admission: 10/11/24 22:30 Discharge Date: 10/15/24 Primary care physician: Bruce Kapoor MD Consults: 10/13/24 10:22 Consult to Speech Therapy Evaluate & Treat Comment: Physician Instructions: Evaluate and treat Discharge provider: Maldonado Victor MD Exam Vital Signs (past 8 hours): Fraction of Inspired Oxygen 21 SaO2/FiO2 Ratio 442 Oxygen Delivery Method Room Air Oxygen Flow Rate 0 Objective Labs 10/14/24 04:44 10/14/24 04:44 PFSH Medical History (Updated 10/12/24 @ 00:31 by Sudarshan Torres MD) Glaucoma Hypertension Depression HLD (hyperlipidemia) Left hemiparesis Cognitive deficits Social History household members: none Smoking Status: Unknown if ever smoked Discharge Plan Discharge Plan Patient Disposition: Assisted Living Transfer to: [facility] Discharge orders & Medications Discharge Orders: Discharge (Order); Ordered 10/14/24 Ordered By: Maldonado Victor Prescriptions: Continued acetaminophen 325 mg tablet 650 mg PO Q4H PRN (Reason: pain or fever) acyclovir 400 mg tablet 800 mg PO Q8H atorvastatin 10 mg tablet 10 mg PO DAILY benzonatate 100 mg capsule 100 mg PO 3XD carboxymethylcellulose sodium [Refresh Plus] 0.5 % dropperette 1 drp EYE-RIGHT Q6H citalopram 10 mg tablet 10 mg PO DAILY dorzolamide-timolol 22.3-6.8 mg/mL drops 2 drp EYE-RIGHT Q12H hydrocortisone 1 % cream 1 applic topical TID PRN (Reason: rash on face) hydrocortisone 2.5 % cream 1 applic topical BID PRN (Reason: red flakey patches) latanoprost 0.005 % drops 1 drp EYE-RIGHT .qhs lisinopril 5 mg tablet 5 mg PO DAILY nystatin 100,000 unit/gram powder 1 applic topical BID PRN (Reason: rash) loratadine 10 mg tablet 10 mg PO DAILY prednisolone acetate 1 % drops,suspension 1 drp EYE-RIGHT QAM meclizine 25 mg tablet 25 mg PO BID PRN (Reason: dizziness) cholecalciferol (vitamin D3) [Vitamin D3] 25 mcg (1,000 unit) tablet 1,000 unit PO DAILY terbinafine HCl [Antifungal (terbinafine)] 1 % cream 1 applic topical BID Vicks Vaporub 4.7-1.2-2.6 % ointment 1 applic topical DAILY ondansetron 4 mg tablet,disintegrating 4 mg PO Q4H PRN (Reason: nausea/vomiting) Follow up/Referrals: Bruce Kapoor MD [Primary Care Provider, Internal Medicine] Visit Report/Discharge Packet Stand Alone Forms: Patient Portal/API, Stroke Signs & Symptoms Discharge Data Primary Care Provider: Bruce Kapoor VTE Deep Vein Thrombosis/Pulmonary Embolism Present on Admission: No
== END 2024-10-15 10:15 | DRG 177 ==
LOC: ED 22:04 → AC 22:31
PROVIDERS: Family Medicine; Admitting Provider Internal Medicine; Emergency Provider Emergency Medicine; Family Provider Internal Medicine; PCP Internal Medicine; Referring Provider Emergency Medicine; Visit Provider Internal Medicine
DX: U07.1 COVID-19 (principal); J96.01 Acute respiratory failure with hypoxia; G81.94 Hemiplegia, unspecified affecting left nondominant side; E87.1 Hypo-osmolality and hyponatremia; J20.8 Acute bronchitis due to other specified organisms; E78.5 Hyperlipidemia, unspecified; F32.A Depression, unspecified; I10 Essential (primary) hypertension; H40.9 Unspecified glaucoma; R41.89 Other symptoms and signs involving cognitive functions and awareness; Z87.820 Personal history of traumatic brain injury
CPT/HCPCS: 36415; 71045; 71275; 80048; 80053; 82550; 83690; 83735; 83880; 84484; 85025; 85610; 85730; 87040; 87633; 92610; 93005; 94640; 94762; 96365; 99285; 99291; A9270; J0696; J1650; Q9967

== ENCOUNTER 2024-11-24 14:58 | Emergency (ER) | payer MEDICARE, MEDICAID, SELFPAY ==
[2024-10-11 23:16] VITALS: BMI 28.5
[2024-11-24 14:50] VITALS: BP 135/81; PULSE 84; RESP 18; TEMP 36.4; O2SAT 94
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
[2024-11-24 18:43] VITALS: BP 148/83; PULSE 60; RESP 20; TEMP 36.8; O2SAT 95
== END 2024-11-24 19:04 | disposition home or self-care (01) ==
PROVIDERS: Emergency Provider Emergency Medicine; Family Provider Internal Medicine; PCP Internal Medicine
DX: S09.90XA Unspecified injury of head, initial encounter (principal); W22.8XXA Striking against or struck by other objects, initial encounter
CPT/HCPCS: 70450; 99281; 99284

== ENCOUNTER 2025-02-07 08:38 | Emergency (ER) | payer MEDICARE, MEDICAID, SELFPAY ==
[2024-10-11 23:16] VITALS: BMI 28.5
[2025-02-07] VITALS (15 sets, daily range): BP systolic 121–167; BP diastolic 73–100; PULSE 51–61; RESP 15–22; TEMP 36.4; O2SAT 91–96
--- NOTE | 2025-02-07 08:44 | ED.GENADULT ---
HPI - General Adult General Chief complaint: Shortness of Breath/Dyspnea Stated complaint: concern for asp PNA Time Seen by Provider: 02/07/25 08:38 History of Present Illness HPI narrative: 69 years old male with history of traumatic brain injury, hypertension, dyslipidemia brought in by ambulance today complaining of not feeling good for the last several days without headache, chest pain, shortness of breath, cough, runny nose, abdominal pain, vomiting, change on his urine or bowel movement pattern, sore throat, fever, back pain. As per the EMT the staff was worried about aspiration pneumonia. He has poor historian. Related Data Home Medications ?Medication ?Instructions ?Recorded ?Confirmed acetaminophen 325 mg tablet 650 mg PO Q4H PRN pain or fever 10/11/24 10/11/24 acyclovir 400 mg tablet 800 mg PO Q8H herpes simplex 10/11/24 10/11/24 atorvastatin 10 mg tablet 10 mg PO DAILY 10/11/24 10/11/24 benzonatate 100 mg capsule 100 mg PO 3XD 10/11/24 10/11/24 camphor 4.7 %-eucalyptus oil 1.2 1 applic topical DAILY 10/11/24 10/11/24 %-menthol 2.6 % topical ointment ([employer] Vaporub) carboxymethylcellulose sodium 0.5 1 drp EYE-RIGHT Q6H 10/11/24 10/11/24 % eye drops in a dropperette (Refresh Plus) cholecalciferol (vitamin D3) 25 1,000 unit PO DAILY 10/11/24 10/11/24 mcg (1,000 unit) tablet (Vitamin D3) citalopram 10 mg tablet 10 mg PO DAILY 10/11/24 10/11/24 dorzolamide 22.3 mg-timolol 6.8 2 drp EYE-RIGHT Q12H 10/11/24 10/11/24 mg/mL eye drops hydrocortisone 1 % topical cream 1 applic topical TID PRN rash on 10/11/24 10/11/24 face hydrocortisone 2.5 % topical cream 1 applic topical BID PRN red 10/11/24 10/11/24 flakey patches latanoprost 0.005 % eye drops 1 drp EYE-RIGHT .qhs 10/11/24 10/11/24 lisinopril 5 mg tablet 5 mg PO DAILY 10/11/24 10/11/24 loratadine 10 mg tablet 10 mg PO DAILY 10/11/24 10/11/24 meclizine 25 mg tablet 25 mg PO BID PRN dizziness 10/11/24 10/11/24 nystatin 100,000 unit/gram topical 1 applic topical BID PRN rash 10/11/24 10/11/24 powder ondansetron 4 mg disintegrating 4 mg PO Q4H PRN nausea/vomiting 10/11/24 10/11/24 tablet prednisolone acetate 1 % eye 1 drp EYE-RIGHT QAM 10/11/24 10/11/24 drops,suspension terbinafine HCl 1 % topical cream 1 applic topical BID 10/11/24 10/11/24 (Antifungal (terbinafine)) Allergies Allergy/AdvReac Type Severity Reaction Status Date / Time Latex, Natural Rubber Allergy Verified 11/24/24 15:13 Penicillins Allergy Verified 11/24/24 15:13 Review of Systems Review of Systems Narrative: positive finding: Not feeling good negative finding: headache, chest pain, shortness of breath, cough, runny nose, abdominal pain, vomiting, change on his urine or bowel movement pattern, back pain, Sore throat, fever. Patient History Medical History (Updated 02/07/25 @ 12:46 by Kathi Fortune MD) Glaucoma Hypertension Depression HLD (hyperlipidemia) Left hemiparesis Cognitive deficits Social History household members: none Exam Narrative Exam Narrative: GENERAL: awake and answer questions appropriately without acute distress. HEAD: Atraumatic Head. NECK: Trachea midline. Non tender CARDIOVASCULAR: Regular rate and rhythm without murmurs, gallops, or rubs. RESPIRATORY: Clear to auscultation. Breath sounds equal bilaterally. No wheezes, rales, or rhonchi. GASTROINTESTINAL: Abdomen soft, non-tender, nondistended. EXTREMITIES: No edema or joint tenderness. NEURO: awake and follow commands. Answers questions appropriately. SKIN: No rash or erythema of visible areas Initial Vital Signs Initial Vital Signs: Vital Signs Pulse Rate 56 L 02/07/25 08:42 Pulse Oximetry 91 02/07/25 08:42 Course Orders Ordered: ED Orders 02/07/25 08:46 CXR [XR chest 1V] Stat 02/07/25 08:52 CBC Auto Diff [Complete Blood Count AUTO DIFF] Stat CMP [Comprehensive Metabolic Panel] Stat EKG-12 Lead Stat 02/07/25 09:00 Covid-19 + FLU A/B + RSV - PCR Stat 02/07/25 11:08 CT abdomen pelvis w con Stat 02/07/25 11:58 UA Complete [Urinalysis and Microscopic] Stat Sodium Chloride (Normal Saline 0.9%) 500 mls @ 1,000 mls/hr IV BOLUS ONE Stop: 02/07/25 13:15 Vital Signs Vital signs: Vital Signs - 8 hr 02/07/25 08:42 02/07/25 08:55 02/07/25 09:00 Temperature 97.5 F L Pulse Rate 56 L 53 L 58 L Respiratory Rate 16 19 Blood Pressure 139/91 H Pulse Oximetry 91 95 91 Oxygen Delivery Method Room Air 02/07/25 09:04 02/07/25 09:04 02/07/25 09:07 Temperature Pulse Rate 59 L Respiratory Rate 15 Blood Pressure 130/100 H 138/89 Pulse Oximetry 93 Oxygen Delivery Method 02/07/25 09:07 02/07/25 09:30 02/07/25 09:30 Temperature Pulse Rate 53 L 51 L Respiratory Rate 18 15 Blood Pressure 130/82 Pulse Oximetry 94 95 Oxygen Delivery Method 02/07/25 10:00 02/07/25 10:00 02/07/25 10:30 Temperature Pulse Rate 51 L Respiratory Rate 20 Blood Pressure 138/84 139/86 Pulse Oximetry 92 Oxygen Delivery Method 02/07/25 10:30 02/07/25 11:00 02/07/25 11:01 Temperature Pulse Rate 57 L 59 L 59 L Respiratory Rate 18 18 22 Blood Pressure Pulse Oximetry 92 93 94 Oxygen Delivery Method 02/07/25 11:01 Temperature Pulse Rate Respiratory Rate Blood Pressure 138/84 Pulse Oximetry Oxygen Delivery Method Medical Decision Making Lab Data 02/07/25 08:52 02/07/25 08:52 Labs: Lab Results 02/07/25 02/07/25 02/07/25 Range/Units 08:52 09:00 11:58 WBC 7.8 (4.5-11.0) X10^3/uL RBC 4.94 (4.5-5.9) X10^6/uL Hgb 15.5 (13.5-17.5) g/dL Hct 45.4 (41-53) % MCV 91.9 (80-100) fL MCH 31.4 (26-34) PG MCHC 34.2 (30-36) % RDW 13.4 (11.6-14.8) % Plt Count 317 (150-400) X10^3/uL Neut % (Auto) 55.4 (50-75) % Lymph % (Auto) 33.9 (25-40) % [place] % (Auto) 7.1 (3-14) % Eos % (Auto) 2.8 (2-4) % Baso % (Auto) 0.8 (0-2) % Neut # (Auto) 4300 (5467-3004) /uL Lymph # (Auto) 2600 (2395-7378) /uL [place] # (Auto) 600 (0-900) /uL Eos # (Auto) 200 (0-450) /uL Baso # (Auto) 100 (0-100) /uL Sodium 138 (137-145) mmol/L Potassium 4.3 (3.4-5.1) mmol/L Chloride 101 (98-107) mmol/L Carbon Dioxide 30 (22-32) mmol/L BUN 12 (9-20) mg/dL Creatinine 0.98 (0.66-1.25) mg/dL Estimated GFR > 60 (>60) mL/min BUN/Creatinine Ratio 12.2 (6-22) Glucose 89 (70-99) mg/dL Calcium 9.0 (8.4-10.2) mg/dL Total Bilirubin 0.8 (0.2-1.3) mg/dL AST 22 (17-59) IU/L ALT 14 (<50) IU/L Alkaline Phosphatase 85 (38-126) U/L Total Protein 7.6 (6.3-8.2) g/dL Albumin 4.2 (3.5-5.0) g/dL Globulin 3.4 (1.7-4.1) g/dL Albumin/Globulin Ratio 1.2 (1.0-2.8) Urine Color Yellow Urine Appearance Clear Urine pH 7.0 (4.5-8.0) Ur Specific [place] 1.015 (1.000-1.035) Urine Protein Negative (Negative) Urine Glucose (UA) Negative (Negative) g/dL Urine Ketones Negative (NEGATIVE) Urine Occult Blood Negative (Negative) Urine Nitrate Negative (Negative) Urine Bilirubin Negative (NEGATIVE) Urine Urobilinogen 1.0 (0.2) E.U./dL Ur Leukocyte Esterase Negative (NEGATIVE) Urine RBC 0-1/hpf (0-5/HPF) Urine WBC 0-1/hpf (0-5/HPF) Ur Squamous Epith Cells 0-1 /hpf (0-5/HPF) Urine Bacteria Occasional (0-1) (None) Ur Culture Indicated? Cult not indicated Vol Urine Centrifuged 10ml (spun) SARS-CoV-2 (PCR) Negative (Negative) Influenza A (RT-PCR) Flu a negative (NEGATIVE) Influenza B (RT-PCR) Flu b negative (NEGATIVE) RSV (PCR) Negative (Negative) Imaging Data CT scan - abdomen/pelvis: Radiologist's Impression: PROCEDURE: CT ABDOMEN PELVIS W CON INDICATIONS: Poor historian. X-ray chest showed free air under the diaph TECHNIQUE: After the administration of intravenous contrast, axial sections acquired from the lung bases to the pubic symphysis. Coronal and sagittal reformats were performed. For radiation dose reduction, the following was used: automated exposure control, adjustment of mA and/or kV according to patient size. COMPARISON: [facility], CR, XR CHEST 1V, 02/07/2025, 8:47. [facility], CT, CT ANGIO CHEST PE PROTOCOL, 10/11/2024, 20:31. FINDINGS: Image quality: Diagnostic. Lower Chest: No significant findings. ABDOMEN: Liver: No solid mass. Gallbladder: No radiopaque gallstones or wall thickening. Biliary ducts: No biliary dilation. Pancreas: No ductal dilation. Spleen: Size is within normal limits. Adrenal Glands: No adrenal nodules. Kidneys and Ureters: No hydronephrosis. No solid mass. No complex renal cystic lesion which requires follow up. Bowel and peritoneum: No free air is seen. The hepatic flexure of the colon is high-riding. There is a moderate volume of stool seen within the colon, particularly distally. No dilated loops of small bowel are seen. Ventral Wall: No significant ventral hernia. Abdominal Nodes: No retroperitoneal or mesenteric adenopathy by size criteria. Vessels: Aorta and inferior vena cava are normal in size. PELVIS: Pelvic Organs: Unremarkable. Bladder: No bladder wall thickening, accounting for underdistention. Pelvic Nodes: No enlarged lymph nodes. Miscellaneous: A moderately sized fat containing left inguinal hernia is seen. Bones: No aggressive osseous abnormality. Mild levoconvex scoliotic curvature is noted. Focal L4-L5 degenerative change is seen. IMPRESSION: Negative for pneumoperitoneum. The hepatic flexure of the colon is high-riding which can simulate free air underneath the diaphragm. There is a moderate amount of stool seen within the colon, particularly distally. Please correlate with an underlying history of constipation. Additional findings: Levoconvex scoliotic curvature Focal L4-L5 degenerative change Fat containing left inguinal hernia Dictated by: Kenny Love M.D. on 02/07/2025 at 10:59 Approved by: Kenny Love M.D. on 02/07/2025 at 11:01 Chest x-ray: Radiologist's Impression: PROCEDURE: XR CHEST 1V INDICATIONS: fatigue TECHNIQUE: One view of the chest was acquired. COMPARISON: [facility], , XR CHEST 1V, 10/11/2024, 19:17. FINDINGS: Surgical changes and devices: None. Lungs and pleura: Lungs are clear. No pleural effusions or pneumothorax. Mediastinum: Mediastinal contours appear normal. Heart size is normal. Bones and chest wall: No suspicious bony lesions. Increased radiolucency under right hemidiaphragm, of peritoneal free air cannot be excluded. Clinical correlation and possible radiograph of abdomen can be done for further evaluation. IMPRESSION: No acute cardiopulmonary pathology. Increased radiolucency under right hemidiaphragm, a peritoneal free air cannot be excluded. Follow-up with CT or radiograph of abdomen can be done for further evaluation. Dictated by: Nathan Gonzalez M.D. on 02/07/2025 at 9:10 Approved by: Nathan Gonzalez M.D. on 02/07/2025 at 9:11 ECG Data Interpretation: EKG showed sinus bradycardia 51 beats per minute without ischemic ST-T changes. No prolonged QT. MDM Narrative Medical decision making narrative: 69 years old male with history of traumatic brain injury, hypertension, dyslipidemia brought in by ambulance today complaining of not feeling good for the last several days without headache, chest pain, shortness of breath, cough, runny nose, abdominal pain, vomiting, change on his urine or bowel movement pattern, sore throat, fever, back pain. As per the EMT the staff was worried about aspiration pneumonia. He has poor historian. His CV exam, lung exam, abdominal exam were normal. He is alert and awake at his baseline. Moving all extremity. He follow commands. his CBC, BMP, UA, COVID, flu, RSV were normal. His LFT was normal. he was given IV normal saline in the ED. Return to the ED precautions was given. his chest x-ray showed IMPRESSION: No acute cardiopulmonary pathology. Increased radiolucency under right hemidiaphragm, a peritoneal free air cannot be excluded. Follow-up with CT or radiograph of abdomen can be done for further evaluation. His CT scan abdomen and pelvis showed IMPRESSION: Negative for pneumoperitoneum. The hepatic flexure of the colon is high-riding which can simulate free air underneath the diaphragm. There is a moderate amount of stool seen within the colon, particularly distally. Please correlate with an underlying history of constipation. Additional findings: Levoconvex scoliotic curvature Focal L4-L5 degenerative change Fat containing left inguinal hernia Dictated by: Kenny Love M.D. on 02/07/2025 at 10:59 Approved by: Kenny Love M.D. on 02/07/2025 at 11:01 Discharge Plan Departure Patient Disposition: [facility] Clinical Impression: Generalized weakness, Constipation Prescriptions: No Action acetaminophen 325 mg tablet 650 mg PO Q4H PRN (Reason: pain or fever) acyclovir 400 mg tablet 800 mg PO Q8H atorvastatin 10 mg tablet 10 mg PO DAILY benzonatate 100 mg capsule 100 mg PO 3XD carboxymethylcellulose sodium [Refresh Plus] 0.5 % dropperette 1 drp EYE-RIGHT Q6H citalopram 10 mg tablet 10 mg PO DAILY dorzolamide-timolol 22.3-6.8 mg/mL drops 2 drp EYE-RIGHT Q12H hydrocortisone 1 % cream 1 applic topical TID PRN (Reason: rash on face) hydrocortisone 2.5 % cream 1 applic topical BID PRN (Reason: red flakey patches) latanoprost 0.005 % drops 1 drp EYE-RIGHT .qhs lisinopril 5 mg tablet 5 mg PO DAILY nystatin 100,000 unit/gram powder 1 applic topical BID PRN (Reason: rash) loratadine 10 mg tablet 10 mg PO DAILY prednisolone acetate 1 % drops,suspension 1 drp EYE-RIGHT QAM meclizine 25 mg tablet 25 mg PO BID PRN (Reason: dizziness) cholecalciferol (vitamin D3) [Vitamin D3] 25 mcg (1,000 unit) tablet 1,000 unit PO DAILY terbinafine HCl [Antifungal (terbinafine)] 1 % cream 1 applic topical BID [employer] Vaporub 4.7-1.2-2.6 % ointment 1 applic topical DAILY ondansetron 4 mg tablet,disintegrating 4 mg PO Q4H PRN (Reason: nausea/vomiting) Referrals: Bruce Kapoor MD [Primary Care Provider, Internal Medicine]
--- NOTE | 2025-02-07 08:52 | EKG_ITS ---
[facility] [address] [address] Test Date: 2025-02-07 Pat Name: Micah Mooney Department: [facility] Room: Gender: Male [employer]: : 1955 Requested By: Order Number: [id number] Reading MD: Pipe Chaudhari MD Measurements Intervals [place] Rate: 51 P: HI: QRS: -23 QRSD: 82 T: 44 QT: 434 QTc: 400 Interpretive Statements Sinus rhythm Electronically Signed On 02-07-2025 10:22:18 PST by Pipe Chaudhari MD
[2025-02-07 09:02] LABS: Add Manual Diff / Slide Review NO; Hematocrit 45.4 % (41-53); Hemoglobin 15.5 g/dL (13.5-17.5); Lymphocytes Absolute Auto 2600 /uL (1100-4500); Mean Corpuscular HGB Conc 34.2 % (30-36); Mean Corpuscular Hemoglobin 31.4 PG (26-34); Mean Corpuscular Volume 91.9 fL (80-100); Platelet Count 317 X10^3/uL (150-400)
[2025-02-07 09:13] LABS: Alanine Aminotransferase 14 IU/L (<50); Albumin 4.2 g/dL (3.5-5.0); Albumin Globulin Ratio 1.2 (1.0-2.8); Alkaline Phosphatase 85 U/L (38-126); Blood Urea Nitrogen 12 mg/dL (9-20); Calcium 9.0 mg/dL (8.4-10.2); Carbon Dioxide 30 mmol/L (22-32); Chloride 101 mmol/L (98-107); Estimated Glomerular Filt Rate > 60 mL/min (>60); Globulin 3.4 g/dL (1.7-4.1); Glucose 89 mg/dL (70-99); HEMOLYSIS 16 (0-50); Potassium 4.3 mmol/L (3.4-5.1); Sodium 138 mmol/L (137-145); Total Protein 7.6 g/dL (6.3-8.2)
[2025-02-07 09:48] LABS: Influenza A - CEPHEID Flu A NEGATIVE (NEGATIVE); Influenza B - CEPHEID Flu B NEGATIVE (NEGATIVE)
[2025-02-07 09:50] LABS: COVID-19 CEPHEID 4-PLEX PCR Negative (Negative)
--- NOTE | 2025-02-07 11:08 | DI.CT.S_ITS ---
PROCEDURE: CT ABDOMEN PELVIS W CON INDICATIONS: Poor historian. X-ray chest showed free air under the diaph TECHNIQUE: After the administration of intravenous contrast, axial sections acquired from the lung bases to the pubic symphysis. Coronal and sagittal reformats were performed. For radiation dose reduction, the following was used: automated exposure control, adjustment of mA and/or kV according to patient size. COMPARISON: [facility], CR, XR CHEST 1V, 02/07/2025, 8:47. [facility], CT, CT ANGIO CHEST PE PROTOCOL, 10/11/2024, 20:31. FINDINGS: Image quality: Diagnostic. Lower Chest: No significant findings. ABDOMEN: Liver: No solid mass. Gallbladder: No radiopaque gallstones or wall thickening. Biliary ducts: No biliary dilation. Pancreas: No ductal dilation. Spleen: Size is within normal limits. Adrenal Glands: No adrenal nodules. Kidneys and Ureters: No hydronephrosis. No solid mass. No complex renal cystic lesion which requires follow up. Bowel and peritoneum: No free air is seen. The hepatic flexure of the colon is high-riding. There is a moderate volume of stool seen within the colon, particularly distally. No dilated loops of small bowel are seen. Ventral Wall: No significant ventral hernia. Abdominal Nodes: No retroperitoneal or mesenteric adenopathy by size criteria. Vessels: Aorta and inferior vena cava are normal in size. PELVIS: Pelvic Organs: Unremarkable. Bladder: No bladder wall thickening, accounting for underdistention. Pelvic Nodes: No enlarged lymph nodes. Miscellaneous: A moderately sized fat containing left inguinal hernia is seen. Bones: No aggressive osseous abnormality. Mild levoconvex scoliotic curvature is noted. Focal L4-L5 degenerative change is seen. IMPRESSION: Negative for pneumoperitoneum. The hepatic flexure of the colon is high-riding which can simulate free air underneath the diaphragm. There is a moderate amount of stool seen within the colon, particularly distally. Please correlate with an underlying history of constipation. Additional findings: Levoconvex scoliotic curvature Focal L4-L5 degenerative change Fat containing left inguinal hernia Dictated by: Kenny Love M.D. on 02/07/2025 at 10:59 Approved by: Kenny Love M.D. on 02/07/2025 at 11:01
[2025-02-07 12:08] LABS: Appearance Urine UA CLEAR; Bilirubin Urine UA NEGATIVE (NEGATIVE); Color Urine UA YELLOW; Glucose Urine UA NEGATIVE (Negative); Ketones Urine UA NEGATIVE (NEGATIVE); Leukocyte Esterase Urine UA NEGATIVE (NEGATIVE); Nitrite Urine UA NEGATIVE (Negative); Occult Blood Urine UA NEGATIVE (Negative); Protein Urine UA NEGATIVE (Negative); Specific Gravity Urine UA 1.015 (1.000-1.035); Urobilinogen Urine UA 1.0 E.U./dL (0.2); pH Urine UA 7.0 (4.5-8.0)
[2025-02-07 12:18] LABS: Culture Indicated Urine Cult Not Indicated
[2025-02-07] MEDS: SODIUM CHLORIDE 0.9% 500 ML 1000 ML IV (13:02)
== END 2025-02-07 14:06 ==
PROVIDERS: Emergency Provider Emergency Medicine; Family Provider Internal Medicine; PCP Internal Medicine
DX: R53.1 Weakness (principal); K59.00 Constipation, unspecified; R53.83 Other fatigue
CPT/HCPCS: 51798; 71045; 74177; 80053; 81001; 85025; 87637; 93005; 93010; 99283; 99284; J7040; Q9967